=== PATIENT | male | born 1960 | race Hispanic/Latino ===

== ENCOUNTER 2020-05-19 07:28 | Observation (INO) | payer OTHER, MEDICARE ==
[2020-05-14 12:42] LABS: BASOPHILS # (AUTO) 0.1 (0.0-0.1); BASOPHILS % 1.3 % (0.0-1.0); EOSINOPHILS % 14.9 % (0.0-6.0); HEMATOCRIT 44.3 % (38.2-49.6); HEMOGLOBIN 14.6 g/dL (14.0-18.0); MEAN CORPUSCULAR HEMOGLOBIN 29.4 pg (28-32); MEAN CORPUSCULAR VOLUME 89.3 fL (81-99); MONOCYTES # (AUTO) 0.7 (0.2-0.8); MONOCYTES % 9.4 % (4.4-11.3); NEUTROPHILS # (AUTO) 3.2 (2.1-6.9); NEUTROPHILS % 45.1 % (38.7-80.0); PLATELET COUNT 190 x10e3/uL (140-360); RED BLOOD COUNT 4.96 x10e6/uL (4.3-5.7); RED CELL DISTRIBUTION WIDTH 13.6 % (11.7-14.4)
[2020-05-14 12:53] LABS: INR 1.09; PROTHROMBIN TIME 14.7 seconds (11.9-14.5)
[2020-05-14 12:54] LABS: PARTIAL THROMBOPLASTIN TIME 34.5 seconds (23.8-35.5)
[2020-05-14 13:00] LABS: ANION GAP 22.9 mmol/L (8-16); CALCIUM 9.9 mg/dL (8.4-10.2); CREATININE, SERUM 15.01 mg/dL (0.72-1.25); POTASSIUM 3.9 mmol/L (3.5-5.1)
[~2020-05-19] VITALS: Ht 170.2 cm; Wt 76.2 kg
[~2020-05-19 07:28] MED LIST: ACETAMINOPHEN325 M1 PO; CYCLOSPORINE25 MG PO; FLOMAX0.4 MG PO; PRAVACHOL20 MG PO; SODIUM CHLORIDE 0.9% 500ML 500 ML ONE; TRANEXAMIC ACID 1,000 MG/10 ML ML ONE; VANCOMYCIN HCL 1,000 MG ONE; ZOLPIDEM TARTRAT5 MG PO
[2020-05-19] MEDS ORDERED: CELECOXIB 200 MG CAP ONE (07:55)
[2020-05-19] MEDS ORDERED: DEXAMETHASONE SOD PHOS 10 MG/1 ML VIAL ONE (07:55)
[2020-05-19] MEDS ORDERED: SODIUM CHLORIDE 0.9% 500ML 500 ML ONE (07:56)
[2020-05-19] MEDS ORDERED: GABAPENTIN 300 MG CAP ONE (07:56)
[2020-05-19] MEDS ORDERED: CEFAZOLIN SOD 1 GM/NS 50ML 100 ML IV ONE (07:56)
[2020-05-19] MEDS ORDERED: ROPIVACAINE 246.25 MG, EPINEPHRINE HCL 1:1000 1ML 0.5 MG, CLONIDINE HCL 0.08 MG, KETORO... INJ ONE ×5 (08:30)
[2020-05-19] MEDS ORDERED: DOCUSATE SODIUM 100 MG CAP PO PRN (10:45)
[2020-05-19] MEDS ORDERED: DIPHENHYDRAMINE HCL INJ 50 MG/ML VIAL IV PRN (10:45)
[2020-05-19] MEDS ORDERED: ACETAMINOPHEN 650 MG SUPP PR PRN (10:45)
[2020-05-19] MEDS ORDERED: HYDROCODONE/APAP 5MG-325MG TAB PO PRN (10:45)
[2020-05-19] MEDS: SODIUM CHLORIDE 0.9% 1000ML 1,000 ML IV SCH ×2 (10:45→20:45)
[2020-05-19] MEDS ORDERED: ZOLPIDEM TARTRATE 5 MG TAB PO PRN (10:45)
[2020-05-19] MEDS ORDERED: ONDANSETRON HCL INJ 2MG/ML 2ML 2 MG/ML VIAL IV PRN (10:45)
[2020-05-19] MEDS ORDERED: HYDROCODONE/APAP 7.5MG-325MG 1 EA TAB PO PRN (10:45)
[2020-05-19] MEDS ORDERED: KETOROLAC TROMETHAMINE 30 MG/ML VIAL IV PRN (10:45)
--- OUTSIDE RECORDS SUMMARY | 2020-05-19 11:07 | XMS REPORT | Continuity of Care Document ---
Author Author [facility] t Organization [facility] Address [address] [place] [address] Phone Unavailable Care Team Providers Care Motor Inspection Mechanic Name Role Phone AZRA YOST Attphys Unavailable Cm STEEL Attphys Unavailable AZRA YOST Admphys Unavailable Cm STEEL Admphys Unavailable Payers Payer Name Policy Type Policy Number Effective Date Expiration Date S ource Problems Condition Name Condition Details Condition Category Status Onset Date Resolution Date Last Treatment Date Treating Clinician Comments Source End stage renal disease End stage renal disease Disease Active 2018-08-28 00:00:00 [facility] Allergies, Adverse Reactions, Alerts Allergy Name Allergy Type Status Severity Reaction(s) Onset Date Inacti ve Date Treating Clinician Comments Source No Known Allergies DA Active U 2018-07-26 00:00:00 [facility] No Known Contrast Allergies DA Active U 2007-01-06 00:00: 00 [facility] No Known Drug Allergies DA Active U 2007-01-06 00:00:00 [facility] No Known Food Allergies DA Active U 2007-01-06 00:00:00 [facility] No Known Other Allergies DA Active U 2007-01-06 00:00:00 [facility] Social History Social Habit Start Date Stop Date Quantity Comments Source Sex Assigned At [facility] Tobacco use and exposure 2018-09-13 00:00:00 2018-09-13 00:00:00 Lizeth black [facility] Alcohol intake 2018-09-13 00:00:00 2018-09-13 00:00:00 Current non-drinker of alcohol (finding) [facility] Jerrye r Smoking Status Start Date Stop Date Source Never smoker [facility] [place] Medications Ordered Medication Name Filled Medication Name Start Date Stop Da te Current Medication? Ordering Clinician Indication Dosage Frequency Signature (SIG) Comments Components Source pravastatin (PRAVACHOL) 10 MG tablet 2018-09-13 11:36:45 Ye s 10mg QD Take 10 mg by mouth daily. [facility] sodium bicarbonate 650 MG tablet 2018-09-13 11:36:45 Yes 1{tbl} QD Take 1 tablet by mouth daily . [facility] terazosin (HYTRIN) 1 MG capsule 2018-09-13 11:36:45 Yes 1mg Q.5D Take 1 mg by mouth 2 (two) times daily . [facility] mycophenolate (CELLCEPT) 250 mg capsule 2018-09-13 11:36:45 Yes 750mg Q.5D Take 750 mg by mouth 2 (two) times daily . [facility] cycloSPORINE (SANDIMMUNE) 25 MG capsule 2018-09-13 11:36:45 Yes 100mg Q.5D Take 100 mg by mouth 2 (two) times daily . [facility] cholecalciferol, vitamin D3, 2,000 unit Tab 2018-09-13 11:36:45 Yes 2000U QD Take 2,000 Units by mouth daily. [facility] ferrous gluconate (FERGON) 324 MG tablet 2018-09-13 11:36:45 Yes 324mg Take 324 mg by mouth daily with breakfast. [facility] amLODIPine (NORVASC) 5 MG tablet 2018-09-13 11:36:45 Yes 5mg QD Take 5 mg by mouth daily. [facility] furosemide (LASIX) 20 MG tablet 2018-09-13 11:36:45 Yes 20mg QD Take 20 mg by mouth daily . [facility] predniSONE (DELTASONE) 10 MG tablet 2018-09-13 11:36:45 Yes 10mg QD Take 10 mg by mouth daily. [facility] RETACRIT 10,000 unit/mL Soln injection 2018-09-12 00:00:00 Yes [facility] tamsulosin (FLOMAX) 0.4 mg Cap 24 hr capsule 2018-08-25 00:00:00 Yes TK ONE C PO QPM [facility] Procedures This patient has no known procedures. Plan of Care Planned Activity Planned Date Details Comments Source Future Scheduled Test 2020-02-19 00:00:00 INFLUENZA VACCINE (#1) [code = INFLUENZA VACCINE (#1)] [facility] Future Scheduled Test 1993 00:00:00 Lipid panel (proce dure) [code = 89813908] [facility] Future Scheduled Test 1964 00:00:00 PNEUMOCOCCAL VACCI NE 0-64 YRS (1 of 3 - PCV13) [code = PNEUMOCOCCAL VACCINE 0-64 YRS (1 of 3 - PCV13)] [facility] Future Scheduled Test 1958 00:00:00 Screening for damaris gnant neoplasm of colon (procedure) [code = 590885671] [facility] Results Test Description Test Time Test Comments Results Result Comments Source GLUCOSE-STAT LAB 2018-08-28 09:56:00 Test Item GLUCOSE RANDOM (BEAKER) (test code = 652) 99 mg/dL 70-110 POTASSIUM-STAT [id number] 09:56:00* Test Item Value Reference Range Interpretation Comments POTASSIUM (BEAKER) (test code = 379) 3.9 meq/L 3.6-5.5 GLUCOSE-STAT [id number] 07:22:00* Test Item Value Reference Range Interpretation Comments GLUCOSE RANDOM (BEAKER) (test code = 652) 91 mg/dL 70-110 POTASSIUM-STAT [id number] 07:22:00* Test Item Value Reference Range Interpretation Comments POTASSIUM (BEAKER) (test code = 379) 3.7 meq/L 3.6-5.5 HGB/HCT (H&H) - STAT [id number] 07:22:00* Test Item Value Reference Range Interpretation Comments HEMOGLOBIN (BEAKER) (test code = 410) 8.0 g/dL 13.0-16.8 L HEMATOCRIT (BEAKER) (test code = 411) 24.0 % 40.0-50.0 L TISSUE [id number] 12:45:00Surgical Pathology Report Case: [id number] Authorizing Provider: Pati Sepulveda MD Collected: 04/10/2018 8026 Ordering Location: [facility] Radiology Angio Received: 04/10/2018 7231 Pathologist: Tonny Carlos MD Specimen: Renal Pelvis, [place] KIDNEY KIDNEY ALLOGRAFT, ULTRASOUND-GUIDED NEEDLE BIOPSIES (S/P RENAL TRANSPLANT IN 2008)- GLOMERULI WITH MEMBRANOPROLIFERATIVE PATTERN, AND SCATTERED IgA TYPE SUBENDOTHELIAL IMMUNE COMPLEX DEPOSITS, see comment- C4D FOCALLY POSITIVE IN PERITUBULAR CAPILLARIES AND DIFFUSELY POSITIVE IN PERIPHERAL GLOMERULAR CAPILLARY LOOPS- DIFFUSE INTERSTITIAL FIBROSIS AND TUBULAR ATROPHY (~60%) - MODERATE TO SEVERE ARTERIAL AND ARTERIOLAR SCLEROSIS- MULTILAYERING OF PERITUBULAR CAPILLARIES (ULTRASTRUCTURAL) Signing Pathologist Direct Phone Line: [phone] 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 Received in formalin are two okeefe-red c ore biopsies ranging in length from 1 to 1.5 cm, submitted entirely A1. Received fresh is a 1 cm red core biopsy submitted for frozen section for immunofluoresc ence staining and received in glutaraldehyde is a 0.3 cm okeefe-red core submitted for electron microscopy if needed. CG/pl LIGHT MICROSCOPY: Sections show two cor es of renal cortical tissue. Glomeruli: Approximately 13 glomeruli are examine d of which 7 glomeruli are globally sclerotic. The non-sclerotic glomeruli are e nlarged and show diffuse and global double contours of the glomerular basement m embrane (PAS and Ybarra stain) and mild mesangial expansion. Focal and segmental sclerosis is present. Glomerulitis is seen. No crescents, or thrombi are seen. T ubules and interstitium: There is diffuse interstitial fibrosis and tubular atro phy involving about 70% of renal cortex. Non-atrophic proximal tubules are focal ly ectatic with loss of brush borders. The areas of interstitial scarring shows mild to moderate chronic lymphoplasmacytic inflammation. No tubulitis is seen. T here is moderate to severe peritubular capillaritis. Vessels: Branches of inte rlobular arteries show moderate to marked intimal sclerosis. There is diffuse ar teriolar hyalinosis. No endothelialitis, arteritis or transmural vasculitis is s een. Special stains: Giovani trichrome, PAS and Ybarra silver stains were necessa ry for evaluation of this biopsy and showed expected staining patterns of healthcare administration intern al control tissue matrix structures. IMMUNOHISTOCHEMISTRYImmunostain for C4d elizabeth ws diffuse segmental to global peripheral and mild mesangial staining. Peritubul ar capillaries are focally positive.IMMUNOFLUORESCENCE Histology: H&E-stained sections show cortex with 17 glomeruli including one globally sclerotic glomerulus. Indirect immunofluorescence C4d focally positive in less than 40% of peritubular capillaries. There is diffuse segmental to global staining of p eripheral glomerular capillaries with C4d Direct immunofluorescence findings: Ig A: glomeruli with diffuse global peripheral and mesangial granular staining 3+Ig G: glomeruli with diffuse segmental to global peripheral and mesangial granular staining 1+ IgM: glomeruli with diffuse global peripheral and mesangial granular staining 2+ to 3+C3: glomeruli with focal and segmental peripheral staining, ar terioles are positive, yin's capsule is positive.C1q: glomeruli with focal we ak nonspecific stainingFibrinogen: focal and segmental peripheral and mesangial staining 1+[place]: glomeruli with diffuse segmental to global peripheral and funes ngial granular staining 1+ Lambda: glomeruli with diffuse segmental to global pe ripheral and mesangial granular staining 2+ to focally 3+ All polyclonal antibod ies used for immunofluorescence staining have been previously tested and shown t o have appropriate reactivities with positive control specimens. ELECTRON MICROS COPY: Thick section histology: Toluidine blue-stained sections reveal one non-ob solescent glomerulus with global double contours. This glomerulus is examined ul trastructurally. Ultrastructure: Examination of the glomerular ultrastructure r eveals that the glomerular basement membrane is globally thickened with double c ontours due to mesangial interpositioning and focal and segmental multilayering. There are few scattered subendothelial and paramesangial electron-dense, immune complex-type deposits. Podocyte foot processes are diffusely effaced. The leslie tubular capillaries show increased lamellations 5-7 and focally more than 7 laye rs in multiple capillary profiles.The following special studies were performed o n this case and the interpretation is incorporated in the diagnostic report abov e:The immunohistochemistry test was developed and its performance characteristic s determined by [facility], Pathology Laboratory. It has not b een cleared or approved by the U.S. Food and Drug Administration. The FDA has de termined that such clearance or approval is not necessary. The test is used for clinical purposes. It should not be regarded as investigational or for research. This laboratory is certified under the Clinical Laboratory Improvement Amendmen ts of 1988 (CLIA-88) as qualified to perform high complexity clinical laboratory testing.U/S, BIOPSY, RENAL (KIDNEY)2018-04-10 14:01:00Reason for Exam:->kidney disease IIIFINAL REPORT Ultrasound guided renal transplant biopsy Modality: Ultrasound Clinical History: Kidney disease Conscious sedation: 1.0 mg Versed and 50 mcg Fentanyl was given intravenously for moderate sedation monitored under my direction. Total time of sedation was 20 minutes. The patient's vital signs were monitored throughout the procedure and recorded in the patient's medical record by the nurse. Local Anesthesia: 10 cc of 1% lidocaine Technique: Informed consent is obtained. The risks of pain, bleeding, infection, injury to kidney/adjacent structures, and adverse medication reactions are discussed with the patient. After informed consent, the patient's right iliac fossa renal transplant is scanned. The lower pole is selected for biopsy. After the skin is prepped and draped in the usual sterile manner, the area is anesthetized with 1% Lidocaine. After a small skin incision is made, an 18 gauge Biopince core biopsy needle is advanced into the renal transplant, under direct sonographic observation. Two passes are made, with two cores obtained. Postprocedure sonographic evaluation of the area reveals no perinephric hematoma. The patient's vital signs remained stable throughout the procedure. No immediate complications are noted. Patient disposition: The patient is sent to the observation area in good condition to be followed to ensure stability of vital signs and for bed rest. Sandbag is placed over the renal transplant. Impression: Successful and uncomplicated ultrasound guided renal transplant biopsy. Signed: Pati Sepulvedaeport Verified Date/Time: 04/10/2018 14:01:02 Reading Location: [facility] [id number] Ultrasound Reading Room -100 2018-04-10 10:48:00* Test Item Value Reference Range Interpretation Comments COL/EPI CLOSURE TIME (BEAKER) (test code = 1801) 152 Seconds 78-19 1 COL/ADP CLOSURE TIME (BEAKER) (test code = 1802) 138 Seconds 43-12 2 H PLATELET COUNT AGG (BEAKER) (test code = 2656) 174 K/CU MM 150-450 Hematocrit <35% or platelet count <150,000/CU MM may contribute to falsely elevated PFA-100.BASIC METABOLIC [id number] 10:02:00* Test Item Value Reference Range Interpretation Comments SODIUM (BEAKER) (test code = 381) 142 meq/L 136-145 POTASSIUM (BEAKER) (test code = 379) 3.9 meq/L 3.5-5.1 CHLORIDE (BEAKER) (test code = 382) 115 meq/L 98-107 H CO2 (BEAKER) (test code = 355) 18 meq/L 22-29 L BLOOD UREA NITROGEN (BEAKER) (test code = 354) 32 mg/dL 7-21 H CREATININE (BEAKER) (test code = 358) 3.72 mg/dL 0.57-1.25 H GLUCOSE RANDOM (BEAKER) (test code = 652) 101 mg/dL 70-105 CALCIUM (BEAKER) (test code = 697) 8.6 mg/dL 8.4-10.2 EGFR (BEAKER) (test code = 1092) 17 mL/min/1.73 sq m ESTIMATED GFR IS NOT ACCURATE CREATININE CLEARANCE IN PREDICTING GLOMERULAR FILTRATION RATE. ESTIMATED GFR IS NOT APPLICABLE FOR DIALYSIS PATIENTS. PT/[id number] 09:51:00* Test Item Value Reference Range Interpretation Comments PROTIME (BEAKER) (test code = 759) 14.8 seconds 11.7-14.7 H INR (BEAKER) (test code = 370) 1.2 <=5.9 PARTIAL THROMBOPLASTIN TIME (BEAKER) (test code = 760) 32.2 seconds 22.5-36.0 RECOMMENDED COUMADIN/WARFARIN INR THERAPY RANGESSTANDARD DOSE: 2.0 - 3.0 Inclu mag: PROPHYLAXIS for venous thrombosis, systemic embolization; TREATMENT for lazaro ous thrombosis and/or pulmonary embolus.HIGH RISK: Target INR is 2.5-3.5 for pat ients with mechanical heart valves.CBC W/PLT COUNT & AUTO [id number] 09:40:00* Test Item Value Reference Range Interpretation Comments WHITE BLOOD CELL COUNT (BEAKER) (test code = 775) 5.5 K/ L 3.5- 10.5 RED BLOOD CELL COUNT (BEAKER) (test code = 761) 3.14 M/ L 4.63-6 .08 L HEMOGLOBIN (BEAKER) (test code = 410) 9.7 GM/DL 13.7-17.5 L HEMATOCRIT (BEAKER) (test code = 411) 29.0 % 40.1-51.0 L MEAN CORPUSCULAR VOLUME (BEAKER) (test code = 753) 92.4 fL 79. 0-92.2 H MEAN CORPUSCULAR HEMOGLOBIN (BEAKER) (test code = 751) 30.9 pg 25.7-32.2 MEAN CORPUSCULAR HEMOGLOBIN CONC (BEAKER) (test code = 752) 33.4 GM/DL 32.3-36.5 RED CELL DISTRIBUTION WIDTH (BEAKER) (test code = 412) 13.7 % 11.6-14.4 PLATELET COUNT (BEAKER) (test code = 756) 176 K/CU MM 150-450 MEAN PLATELET VOLUME (BEAKER) (test code = 754) 11.1 fL 9.4-12 .4 NUCLEATED RED BLOOD CELLS (BEAKER) (test code = 413) 0 /100 WBC 0 -0 NEUTROPHILS RELATIVE PERCENT (BEAKER) (test code = 429) 69 % LYMPHOCYTES RELATIVE PERCENT (BEAKER) (test code = 430) 21 % MONOCYTES RELATIVE PERCENT (BEAKER) (test code = 431) 6 % EOSINOPHILS RELATIVE PERCENT (BEAKER) (test code = 432) 3 % BASOPHILS RELATIVE PERCENT (BEAKER) (test code = 437) 1 % NEUTROPHILS ABSOLUTE COUNT (BEAKER) (test code = 670) 3.80 K/ L 1.78-5.38 LYMPHOCYTES ABSOLUTE COUNT (BEAKER) (test code = 414) 1.14 K/ L 1.32-3.57 L MONOCYTES ABSOLUTE COUNT (BEAKER) (test code = 415) 0.31 K/ L 0. 30-0.82 EOSINOPHILS ABSOLUTE COUNT (BEAKER) (test code = 416) 0.18 K/ L 0.04-0.54 BASOPHILS ABSOLUTE COUNT (BEAKER) (test code = 417) 0.03 K/ L 0. 01-0.08 IMMATURE GRANULOCYTES-RELATIVE PERCENT (BEAKER) (test code = 2801) 0 % 0-1
--- OUTSIDE RECORDS SUMMARY | 2020-05-19 11:07 | XMS REPORT | Clinical Summary ---
Author Author [facility] Address Unknown Phone Unavailable Care Team Providers Care Server Name Role Phone PCP Unavailable Allergies No Known Allergies Medications End Date Status Medication Sig Dispensed Refills Start Date Active pravastatin (PRAVACHOL) Take 10 mg by 0 10 MG tablet mouth daily. Active sodium bicarbonate 650 MG Take 1 tablet 0 tablet by mouth daily . Active terazosin (HYTRIN) 1 MG Take 1 mg by 0 capsule mouth 2 (two) times daily . Active mycophenolate (CELLCEPT) Take 750 mg 0 250 mg capsule by mouth 2 (two) times daily . Active cycloSPORINE (SANDIMMUNE) Take 100 mg 0 25 MG capsule by mouth 2 (two) times daily . Active cholecalciferol, vitamin Take 2,000 0 D3, 2,000 unit Tab Units by mouth daily. Active ferrous gluconate Take 324 mg 0 (FERGON) 324 MG tablet by mouth daily with breakfast. Active amLODIPine (NORVASC) 5 MG Take 5 mg by 0 tablet mouth daily. Active furosemide (LASIX) 20 MG Take 20 mg by 0 tablet mouth daily . Active predniSONE (DELTASONE) 10 Take 10 mg by 0 MG tablet mouth daily. Active tamsulosin (FLOMAX) 0.4 TK ONE C PO 3 mg Cap 24 hr capsule QPM 9 Active RETACRIT 10,000 unit/mL 0 Soln injection 9 Active Problems Problem Noted Date End stage renal disease 08/28/2018 Social History Date Tobacco Use Types Packs/Day Years Used Never Smoker Smokeless Tobacco: Never Used Drinks/Week oz/Week Comments Alcohol Use No Sex Assigned at Date Recorded Not on file Last Filed Vital Signs Not on file Plan of Treatment Health Maintenance Due Date Last Done Comments COLON CANCER SCREENING 1958 COLONOSCOPY PNEUMOCOCCAL VACCINE 0-64 1964 YRS (1 of 3 - PCV13) LIPID PANEL 1993 INFLUENZA VACCINE (#1) 2020 Results Not on fileafter 05/19/2019 Insurance Type Payer Benefit Subscriber ID Effective Phone Address Plan / Dates Group HMO/POS AETNA - [employer] C[employer] AETNA HMO [id number] 2015-P POS QPOS resent Advance Directives For more information, please contact: [phone] Date Inactivated Comments Code Status Date Activated 08/28/2018 2:13 PM Full Code 08/28/2018 6:49 AM This code status was determined by: Patient 04/10/2018 10:01 PM Full Code 04/10/2018 4:16 PM This code status was determined by: Patient
[2020-05-19] MEDS ORDERED: MEPERIDINE HCL INJ 25 MG/ML VIAL ONE (11:18)
--- NOTE | 2020-05-19 11:29 | Operative Report ---
DATE OF PROCEDURE: 05/19/2020 SURGEON: Wilman Tipton MD CONNIE CLEANER: Priyank Brown PA-C PREOPERATIVE DIAGNOSIS: Osteoarthritis, right knee. POSTOPERATIVE DIAGNOSIS: Osteoarthritis, right knee. PROCEDURE: Right total knee arthroplasty. INDICATIONS: The patient is a 59-year-old gentleman, who has end-stage arthritis in his right knee. He has failed conservative management and would like to proceed with a right total knee replacement. His past medical history is significant for kidney transplant. The risks and benefits have been thoroughly explained. All of his questions have been answered. He states he understands and wishes to proceed. PROCEDURE IN DETAIL: The patient was brought to the operating room and placed under general anesthetic. His right lower extremity was prepped and draped in a sterile manner. He received prophylactic antibiotics, tranexamic acid, and a regional block in the holding area. A preoperative time-out was performed. The extremity was exsanguinated and a proximal tourniquet was inflated to 300 mmHg. An anterior incision with a medial parapatellar arthrotomy was performed. Extensive inflamed synovium was encountered. A subtotal synovectomy was performed. Soft tissue releases were performed to bring the knee up into flexion with the patella everted. Meniscal remnants and marginal osteophytes in the cruciate ligaments were removed. A Maya/Biomet persona medial congruent knee system was used throughout the case. An extramedullary cutting guide was used to resect the proximal tibia. The tibial base plate was a size E. Central fin punch was then drilled and impacted. Attention was directed towards the distal femur. An intramedullary cutting guide was used to resect the distal femur in 5 degrees of valgus and rotation referencing off a combination of landmarks including Whitesides line, the epicondylar axis, and the posterior condyles. The femoral component was a size 7. The anterior and posterior cuts were made. Trial reductions were performed. A 10 mm medial congruent tibial insert provided appropriate soft tissue balancing in full extension and 90 degrees of flexion. The patella was re-resurfaced with a 32 mm patellar button. The thickness was checked before and after resurfacing and was right at 21 mm. Patellar tracking was noted to be concentric. The trial implants were then all removed. The knee was thoroughly irrigated with a shower tip pulsatile lavage. The knee had been irrigated several times with a spray mixture of diluted polymyxin and vancomycin spray throughout the case. A 100 mL premixed pericapsular ENEIDA injection was then injected into the surrounding soft tissue. The components were cemented into place using a single mix of high viscosity Biomet cement preloaded with antibiotics. Care was taken to remove all extravasated cement. The wound was further irrigated while the cement cured. The arthrotomy was then closed with interrupted #1 Ethibond. The knee was put through flexion and extension to ensure a secure closure. A 500 mg of vancomycin powder was sprinkled into the wound prior to the closure. The skin was then closed with subcuticular Vicryl and asya. A sterile Aquacel bandage and an Geovani wrap were applied. Blood loss was minimal. All needle and sponge counts were correct. Wilman Tipton MD DR/TIFFANY /[id number]
[2020-05-19] MEDS ORDERED: DEXAMETHASONE SOD PHOS INJ 4 MG/ML VIAL ONE (11:31)
[2020-05-19] MEDS ORDERED: PROPOFOL IV EMULSION 10 MG/ML 20 ML VIAL ONE (11:31)
[2020-05-19] MEDS ORDERED: LIDOCAINE HCL 2% LOCAL INJ 5 ML SDV VIAL INJ ONE (11:31)
[2020-05-19] MEDS ORDERED: MIDAZOLAM HCL 2 MG/2 ML VIAL ONE (11:31)
[2020-05-19] MEDS ORDERED: FENTANYL CITRATE/PF 100MCG/2 ML INJ ONE ×2 (11:31→11:41)
[2020-05-19] MEDS ORDERED: ROCURONIUM BROMIDE 10 MG/ML 5ML VIAL IV ONE (11:31)
[2020-05-19] MEDS ORDERED: ONDANSETRON HCL INJ 2MG/ML 2ML 2 MG/ML VIAL ONE (11:31)
[2020-05-19] MEDS ORDERED: NEOSTIGMINE 1 MG/ML 10ML VIAL ONE (11:31)
[2020-05-19] MEDS ORDERED: GLYCOPYRROLATE INJ 0.2 MG/ML VIAL ONE (11:31)
[2020-05-19] MEDS ORDERED: SEVOFLURANE INHAL SOLN 250 ML PEN BTL ONE (11:31)
--- NOTE | 2020-05-19 11:54 | Diagnostic Imaging Report ---
Exam: KNEE RIGHT 1-2 VIEWS History: Postop Comparison: None. Findings: Status post right knee total arthroplasty with appropriate alignment of femoral and tibial prostheses. No evidence of acute hardware failure. Associated postsurgical changes including joint effusion with intra-articular air. No fracture or acute osseous abnormality. No joint malalignment or dislocation. Anterior superficial skin asya. Scattered vascular calcifications. Impression: 1. Status post right knee total arthroplasty without evidence of acute hardware complication. Associated postsurgical changes in the surrounding soft tissues. Signed by: Dr. Thom Galarza M.D. on 05/19/2020 11:51 AM
--- NOTE | 2020-05-19 11:54 | Consultation ---
DATE OF CONSULTATION: 05/19/2020 REASON FOR CONSULTATION: Medical management. HISTORY OF PRESENT ILLNESS: This is a 59-year-old man, who was initially admitted to [facility] with diagnosis of advanced right knee osteoarthritis. Today, the patient underwent right total knee arthroplasty, was performed successfully by his orthopedic surgeon, namely Dr. Wilman Tipton. This gentleman has history of end-stage renal disease and undergoes daily peritoneal dialysis. The patient has voiced no complaints at this time. The patient underwent a Coronavirus test by PCR on May 14, 2020, and the results were negative. On May 14, 2020, the patient's BUN and creatinine were 49 and 15.01 respectively. The patient's potassium is 3.9. The patient's hemoglobin on May 14, 2020, was 14.6 g/dL. REVIEW OF SYSTEMS: GENERAL: Weight has been stable. No fever or chills. HEENT: No headaches. No visual changes. CARDIOVASCULAR/RESPIRATORY: No chest pain. No shortness of breath. No cough. GI: No nausea or vomiting. : No Schwartz catheter in place, but the patient does have BPH symptoms, well controlled with tamsulosin. The patient is anuric (transplanted kidney no longer functions). NEUROMUSCULAR: The patient has arthritic pain in his knees. ALLERGIES: NO KNOWN DRUG ALLERGIES. MEDICATIONS: 1. Acetaminophen 650 mg every night as needed for arthritic pain. 2. Cyclosporine 50 mg at bedtime. 3. Pravastatin 10 mg at bedtime. 4. Tamsulosin 0.4 at bedtime. 5. Zolpidem 10 mg at bedtime for insomnia. FAMILY HISTORY: Noncontributory. PAST MEDICAL HISTORY: 1. End-stage renal disease (daily peritoneal dialysis). 2. History of kidney transplantation in 2008. 3. Hyperlipidemia. 4. Benign prostatic hypertrophy. 5. Chronic diastolic congestive heart failure. 6. Ischemic heart disease. PAST SURGICAL HISTORY: 1. Kidney transplantation in 2008. 2. Cholecystectomy. 3. Cataract surgery. 4. Right knee total arthroplasty today. 5. Dialysis shunt insertion in October of 2018. SOCIAL HISTORY: The patient is , lives with . No history of tobacco or alcohol use. He is currently not employed. PHYSICAL EXAMINATION: GENERAL: On exam, he is somnolent, but he is arousable. He does not appear to be in any obvious distress. VITAL SIGNS: Blood pressure is 95/58, pulse 86, respiratory rate 16, oxygen saturation is 100% on a Venti mask at 10 L a minute, pulse 85, temperature 98.0, height 5 feet 7 inches, weight 168 pounds, BMI 26. INTEGUMENT: Skin is warm and dry. No pallor, jaundice, or diaphoresis. HEENT: Anterior sclerae. Moist mucous membranes. NECK: Supple. No evidence of jugular venous distention. CARDIOVASCULAR: Distant heart sounds. Regular rate and rhythm. LUNGS: No rales. No rhonchi. ABDOMEN: Soft. Normal bowel sounds. EXTREMITIES: Right knee is dressed. NEUROLOGIC: Intact. The patient moves all four extremities freely. DIAGNOSES: 1. Status post right total knee arthroplasty.. 2. End-stage renal disease (on daily peritoneal dialysis). 3. Hyperlipidemia. PLAN: 1. Consult Nephrology since the patient undergoes daily peritoneal dialysis. 2. Mobilize the patient with therapy. 3. Encouraged incentive spirometer usage to prevent atelectasis. 4. Pain control. 5. Follow electrolytes since this patient does have end-stage renal disease. I would like to thank, Dr. Wilman Tipton for this generous consult. I spent 45 minutes in the care of this patient. MD JAZMYN Mcgee/TIFFANY /[id number] MTDGeraldo
[2020-05-19 13:02] LABS: BASOPHILS % 0.3 % (0.0-1.0); EOSINOPHILS % 0.5 % (0.0-6.0); HEMATOCRIT 37.8 % (38.2-49.6); HEMOGLOBIN 12.4 g/dL (14.0-18.0); LYMPHOCYTES # (AUTO) 0.4 (1.0-3.2); LYMPHOCYTES % 5.7 % (18.0-39.1); MEAN CORPUSCULAR HGB CONC 32.8 g/dL (31-35); MEAN CORPUSCULAR VOLUME 88.3 fL (81-99); MONOCYTES # (AUTO) 0.1 (0.2-0.8); MONOCYTES % 0.6 % (4.4-11.3); NEUTROPHILS # (AUTO) 7.1 (2.1-6.9); NEUTROPHILS % 92.6 % (38.7-80.0); PLATELET COUNT 148 x10e3/uL (140-360); RED BLOOD COUNT 4.28 x10e6/uL (4.3-5.7); RED CELL DISTRIBUTION WIDTH 13.9 % (11.7-14.4)
--- NOTE | 2020-05-19 14:05 | NUR ---
received patient from PACU via stretcher, pt is alert no s/s of distress. respirations even and nonlabored. pt transferred to hospital bed with no assistance. bilateral foot pumps placed. family at the bedside
[2020-05-19] MEDS ORDERED: SODIUM CHLORIDE 0.9% 250ML 250 ML ONE (14:21)
[2020-05-19] MEDS: CEFAZOLIN SOD 1 GM/NS 50ML 50 ML IV SCH ×2 (14:37→21:36)
[2020-05-19 16:22] VITALS: BP 125/84
[2020-05-19] MEDS: CELECOXIB 200 MG CAP PO SCH (16:43)
[2020-05-19] MEDS: ASPIRIN 325 MG TAB PO SCH (16:43)
[2020-05-19] MEDS: SEVELAMER CARBONATE 800 MG TAB PO SCH (16:44)
--- NOTE | 2020-05-19 17:42 | Consultation ---
DATE OF CONSULTATION: 05/19/2020 REQUESTING PHYSICIAN: Dr. Falk REASON FOR CONSULTATION: ESRD. Thank you for allowing us to participate in Mr. Kent's care. HISTORY OF PRESENT ILLNESS: This is a 59-year-old male with history of end-stage renal disease. He has failed living unrelated transplant that lasted about 10 years. He came for osteoarthritis of the right knee requiring arthroplasty. That was done by Dr. Rey. His phosphorus tends to run high. PAST HISTORY: 1. End-stage renal disease. 2. Failed living unrelated renal transplant. 3. Still on some immunosuppression that needs to be weaned. 4. Ongoing peritoneal dialysis. 5. Secondary hyperparathyroidism with hyperphosphatemia that has been uncontrolled. MEDICATIONS: Please see list. SOCIAL HISTORY: Lives with family. FAMILY HISTORY: Hypertension. REVIEW OF SYSTEMS: CONSTITUTIONAL: No fever or chills. CARDIAC: No angina or syncope. RESPIRATORY: No cough or hemoptysis. : Makes very little urine. MUSCULOSKELETAL: Knee pain is now operated on. Rest of review is negative. PHYSICAL EXAMINATION: GENERAL: Lying in bed, no distress. VITAL SIGNS: Temperature is 98, pulse 72 regular, blood pressure 95/67. HEENT: Atraumatic. CHEST: Clear. Bilateral breath sounds equal. ABDOMEN: Soft. PD catheter in place. EXTREMITIES: Right leg is wrapped. Left leg no edema. NEUROLOGIC: Alert and appropriate. Speech is normal. LABORATORY DATA: K is 3.9, creatinine 15, BUN 49. Hemoglobin is 12.4. ASSESSMENT: 1. End-stage renal disease. 2. Ongoing peritoneal dialysis with trouble with clearances, requiring long stays on the cycler machine. 3. Anemia with satisfactory hemoglobin. 4. History of failed transplant. 5. Volume status seems reasonable. 6. Electrolytes satisfactory. PLAN: 1. Peritoneal dialysis tonight. We will try to see if he will tolerate 3 L exchanges. Tonight, we will try 5 exchanges. 2. 3 L fill volume. 3. 90 minute dwell. 4. 1.25% dextrose/2.5% dextrose in the dialysate fluid. Keep salt and water restricted. 5. He normally uses a medicine called Velphoro for his phosphorus. We will change it to a more easily available sevelamer while he is here. Once he goes home, he can resume it. 6. Also discussed with the regarding diet given his propensity towards musculoskeletal problems. It is important to control the phosphorus based on what we know. Avoid common high phosphorus foods such as corn and beans which he seems to be quite fond of. MD MARIE Pagan/TIFFANY /[id number]
[2020-05-19] MEDS ORDERED: ROPIVACAINE 0.5% 5 MG/ML 30 ML SDV ONE (18:01)
[2020-05-19] MEDS ORDERED: LIDOCAINE 2%/ EPINEPHRINE 20ML MDV ONE (18:01)
--- NOTE | 2020-05-19 19:12 | NUR ---
WALKING ROUNDS PERFORMED, RECEIVED PT LAYING SEMI FOWLERS IN BED, AAOX3, RR EVEN AND NON-LABORED, ON ROOM AIR. NO S/SX OF DISTRESS NOTED. (R) KNEE IN CPM AT 50 FLEXION, INCREASED SPEED TO 3 AND INCREASED FLEXION TO 60. PT TOLERATING WELL. LEFT PT LAYING SEMI FOWLERS IN BED, BED IN LOW LOCKED POSITION, SIDE RAILS UPX2, CALL LIGHT AND PHONE WITHIN REACH.
[2020-05-19 20:00] VITALS: BP 122/89
[2020-05-19] MEDS ORDERED: TAMSULOSIN HCL 0.4 MG CAP PO SCH (21:00)
[2020-05-19] MEDS ORDERED: CYCLOSPORINE 25 MG CAP PO SCH (21:00)
[2020-05-19] MEDS ORDERED: ZOLPIDEM TARTRATE 10 MG TAB PO SCH (21:00)
[2020-05-19] MEDS ORDERED: ZOLPIDEM TARTRATE 5 MG TAB PO SCH (21:00)
[2020-05-19] MEDS ORDERED: PRAVASTATIN 20 MG TAB PO SCH (21:00)
[2020-05-19] MEDS ORDERED: ACETAMINOPHEN 325 MG TAB PO SCH (21:00)
[2020-05-19 22:05] VITALS: BP 122/89
[2020-05-19] MEDS ORDERED: INFLUENZA VIRUS VAC SPLIT INJ 0.5 ML SYR IM SCH (22:22)
[2020-05-20] VITALS: BP 136/99
[2020-05-20 04:00] VITALS: BP 116/84
[2020-05-20 05:01] LABS: BASOPHILS % 0.2 % (0.0-1.0); HEMATOCRIT 37.3 % (38.2-49.6); HEMOGLOBIN 12.3 g/dL (14.0-18.0); LYMPHOCYTES % 10.2 % (18.0-39.1); MONOCYTES # (AUTO) 0.5 (0.2-0.8); MONOCYTES % 5.3 % (4.4-11.3); NEUTROPHILS # (AUTO) 8.2 (2.1-6.9); NEUTROPHILS % 83.9 % (38.7-80.0); PLATELET COUNT 159 x10e3/uL (140-360); RED BLOOD COUNT 4.24 x10e6/uL (4.3-5.7); RED CELL DISTRIBUTION WIDTH 13.7 % (11.7-14.4)
[2020-05-20 05:32] LABS: ALBUMIN/GLOBULIN RATIO 0.7 (0.8-2.0); ANION GAP 24.8 mmol/L (8-16); CALCIUM 9.4 mg/dL (8.4-10.2); CREATININE, SERUM 15.79 mg/dL (0.72-1.25); POTASSIUM 3.8 mmol/L (3.5-5.1)
[2020-05-20] MEDS: CEFAZOLIN SOD 1 GM/NS 50ML 50 ML IV SCH (05:43)
[2020-05-20] MEDS: SODIUM CHLORIDE 0.9% 1000ML 1,000 ML IV SCH (06:03)
--- NOTE | 2020-05-20 07:44 | Progress Note ---
DATE: 05/20/2020 CHIEF COMPLAINT/HISTORY OF PRESENT ILLNESS: This is a 59-year-old man, who was initially admitted to [facility] with a diagnosis of advanced right knee osteoarthritis. Yesterday, the patient underwent successful right total knee arthroplasty that was performed by Dr. Wilman Tipton. The patient states that his pain is well controlled. The patient voices no other complaints. The patient has end-stage renal disease and undergoes daily peritoneal dialysis. The patient did undergo peritoneal dialysis last night and will undergo peritoneal dialysis later today. The patient was seen by his automation operator during this hospitalization namely, Dr. Jones. Blood work today revealed white blood cell count of 9700 with 83% segmented neutrophils. Hemoglobin is 12.3 g/dL. The patient's BUN and creatinine today is 64 and 15.79 respectively. Potassium is 3.8. Serum bicarbonate is 21. REVIEW OF SYSTEMS: As per HPI. PHYSICAL EXAMINATION: GENERAL: He is awake. He is alert. He is oriented. He is in no distress. VITAL SIGNS: Height is 5 feet 7 inches, weight is 168 pounds, BMI 26, blood pressure is 116/84, pulse 56, respiratory rate 18, temperature 97.6, oxygen saturation 100% on room air. INTEGUMENT: Skin is warm and dry. No pallor, jaundice, or diaphoresis. HEENT: Anterior sclerae. Moist mucous membranes. NECK: Supple. CARDIOVASCULAR: Bradycardic rate, regular rhythm. The patient has a faint systolic ejection murmur. No gallops appreciated. LUNGS: No rales. No rhonchi. No wheezes. ABDOMEN: Soft. EXTREMITIES: The right knee joint is currently dressed. NEUROLOGIC: Intact. DIAGNOSES: 1. Status post right total knee arthroplasty. 2. End-stage renal disease. 3. Chronic diastolic congestive heart failure. PLAN: 1. Proceed with peritoneal dialysis today. 2. Mobilize the patient with therapy. 3. Encourage incentive spirometer use to prevent atelectasis. 4. Pain control. 5. Follow electrolytes. 6. Discharge planning for today. I spent 20 minutes in care of this patient. MD JAZMYN Mcgee/TIFFANY /[id number] EMELY
[2020-05-20 07:45] VITALS: BP 118/84
[2020-05-20] MEDS: ASPIRIN 325 MG TAB PO SCH (08:34)
[2020-05-20] MEDS: CELECOXIB 200 MG CAP PO SCH (08:34)
[2020-05-20] MEDS: SEVELAMER CARBONATE 800 MG TAB PO SCH ×2 (08:34→11:50)
--- NOTE | 2020-05-20 08:44 | Progress Note ---
DATE: SUBJECTIVE: Tolerated peritoneal dialysis overnight. 3 L fill volume was used in an attempt to make clearance is better, so he may be able to shorten dialysis time. Pending final UF calculation. PHYSICAL EXAMINATION: VITAL SIGNS: Temperature 97.8, blood pressure 118/84, pulse 58. CHEST: Clear. EXTREMITIES: No edema. Right leg is wrapped. LABORATORY DATA: Hemoglobin is 12.3, potassium 3.8, and serum CO2 21. ASSESSMENT: End-stage renal disease. Volume reasonable. Blood pressure reasonable. Status post arthroplasty of the right knee. PLAN: Continue to yesterday's PD prescription if he was here. If not, he may go back to his home dialysis prescription and readjust as we go along. I will pass on the message that he is tolerating slightly larger fill volumes, which hopefully may allow the total dialysis time to be shorten in (this has become a source of frustration and hence a risk for him stopping home dialysis). MD MARIE Pagan/TIFFANY /[id number]
[2020-05-20 10:33] VITALS: BP 118/84
[2020-05-20] MEDS ORDERED: ACETAMINOPHEN 1000 MG/100 ML IV PRN (10:45)
[2020-05-20 11:41] VITALS: BP 105/78
--- NOTE | 2020-05-20 12:29 | NUR ---
Home health and DME prearranged by Dr. Tipton's office. Home health set up with [facility]. CM called and spoke with Jessy. States pt is scheduled to be seen tomorrow. Home health information was given to pt. CM asked him to call them if he does not hear from them within 24 hrs of discharge. RW and CPM were delivered by [facility] to pt's bedside today. Pt states he already has a BSC.
--- NOTE | 2020-05-20 13:00 | NUR ---
paged Dr. Falk to inform him that Dr. Tipton put in discharge orders
[2020-05-20] MEDS ORDERED: ONDANSETRON HCL 4 MG ORAL DISINTEGRATING TAB PO PRN (13:15)
== END 2020-05-20 15:10 | disposition home or self-care (01) ==
LOC: OR 07:28 → PACU V 10:41 → MED/SURG 13:58
PROVIDERS: ADMIT Specialist; ATTEND Specialist
DX: M17.0 Bilateral primary osteoarthritis of knee (principal); N18.6 End stage renal disease; Z99.2 Dependence on renal dialysis; I13.2 Hypertensive heart and chronic kidney disease with heart failure and with stage 5 chronic kidney disease, or end stage renal disease; I50.32 Chronic diastolic (congestive) heart failure; Z94.0 Kidney transplant status; N40.0 Benign prostatic hyperplasia without lower urinary tract symptoms; I25.9 Chronic ischemic heart disease, unspecified; Z20.828 Contact with and (suspected) exposure to other viral communicable diseases; Z23 Encounter for immunization
CPT/HCPCS: 27447; 36415 ×3; 64450; 73560; 80048; 80053; 84132; 85025 ×3; 85610; 85730; 86850; 86900; 86920; 90970; 97110; 97116 ×2; 97161; C1713; C1776 ×4; G0378 ×2; J0171; J0690 ×2; J1100 ×2; J1885; J2001 ×2; J2175; J2250; J2405; J2704; J2710; J2795; J3010; J3370; J7040; J7050; J7515; U0002

== ENCOUNTER → 2020-12-25 | Day surgery (SDC) | payer MEDICARE, OTHER ==
[~2020-12-25] MED LIST changes: +LIDOCAINE HCL 2% LOCAL INJ 5 ML SDV VIAL INJ ONE; +MIDAZOLAM HCL 2 MG/2 ML VIAL ONE; +PHENYLEPHRINE HCL 1% 10 MG/ML VIAL ONE; +PROPOFOL IV EMULSION 10 MG/ML 20 ML VIAL ONE; +SENSIPAR30 MG PO; +TEMAZEPAM15 MG PO; -TRANEXAMIC ACID 1,000 MG/10 ML ML ONE; -VANCOMYCIN HCL 1,000 MG ONE; +VITAMIN D3250 MCG PO
[2020-12-25 07:08] LABS: BASOPHILS # (AUTO) 0.1 (0.0-0.1); BASOPHILS % 1.4 % (0.0-1.0); EOSINOPHILS # (AUTO) 2.4 (0.0-0.4); EOSINOPHILS % 26.1 % (0.0-6.0); HEMATOCRIT 27.3 % (38.2-49.6); HEMOGLOBIN 9.1 g/dL (14.0-18.0); LYMPHOCYTES # (AUTO) 1.8 (1.0-3.2); LYMPHOCYTES % 19.3 % (18.0-39.1); MEAN CORPUSCULAR HEMOGLOBIN 30.7 pg (28-32); MEAN CORPUSCULAR HGB CONC 33.3 g/dL (31-35); MEAN CORPUSCULAR VOLUME 92.2 fL (81-99); MONOCYTES # (AUTO) 0.7 (0.2-0.8); MONOCYTES % 7.6 % (4.4-11.3); NEUTROPHILS # (AUTO) 4.2 (2.1-6.9); NEUTROPHILS % 45.3 % (38.7-80.0); PLATELET COUNT 276 x10e3/uL (140-360); RED BLOOD COUNT 2.96 x10e6/uL (4.3-5.7); RED CELL DISTRIBUTION WIDTH 14.5 % (11.7-14.4)
[2020-12-25 07:30] LABS: INR 1.07; PROTHROMBIN TIME 14.5 seconds (11.9-14.5)
[2020-12-25 07:31] LABS: PARTIAL THROMBOPLASTIN TIME 37.2 seconds (23.8-35.5)
[2020-12-25 08:12] LABS: EOSINOPHILS % (MANUAL) 28 % (0-7); LYMPHOCYTES % (MANUAL) 20 % (19-48); MONOCYTES % (MANUAL) 4 % (3.4-9.0); NEUTROPHILS % (MANUAL) 48 % (40-74); PLATELET ESTIMATE ADEQUATE; PLATELET MORPHOLOGY COMMENT NORMAL; RBC MORPHOLOGY COMMENT NORMAL
[2020-12-25 09:00] VITALS: BP 106/72
== END | disposition home or self-care (01) ==
LOC: OR 06:07
PROVIDERS: ATTEND Internal Medicine Gastroenterology
DX: Z12.11 Encounter for screening for malignant neoplasm of colon (principal); K64.8 Other hemorrhoids; D64.9 Anemia, unspecified; I12.0 Hypertensive chronic kidney disease with stage 5 chronic kidney disease or end stage renal disease; N18.6 End stage renal disease; N40.0 Benign prostatic hyperplasia without lower urinary tract symptoms; Z01.810 Encounter for preprocedural cardiovascular examination; Z99.2 Dependence on renal dialysis; Z94.0 Kidney transplant status
CPT/HCPCS: 36415; 84132; 85025; 85610; 85730; 93005; G0121; J2001; J2250; J2370; J2704; J7040; 45378

== ENCOUNTER 2021-02-22 15:18 | Inpatient (IN) | payer MEDICARE, OTHER ==
[~2021-02-22] VITALS: Ht 170.2 cm; Wt 76.2 kg
[~2021-02-22 15:18] MED LIST changes: -LIDOCAINE HCL 2% LOCAL INJ 5 ML SDV VIAL INJ ONE; -MIDAZOLAM HCL 2 MG/2 ML VIAL ONE; -PHENYLEPHRINE HCL 1% 10 MG/ML VIAL ONE; -PROPOFOL IV EMULSION 10 MG/ML 20 ML VIAL ONE; -SODIUM CHLORIDE 0.9% 500ML 500 ML ONE
[2021-02-22] MEDS ORDERED: NEOSTIGMINE 1 MG/ML 10ML VIAL ONE (15:51)
[2021-02-22] MEDS ORDERED: PROPOFOL IV EMULSION 10 MG/ML 20 ML VIAL ONE (15:51)
[2021-02-22] MEDS ORDERED: POVIDONE IODINE 0.05% 0.05 % ML PO ONE (15:51)
[2021-02-22] MEDS ORDERED: IOPAMIDOL 370 MG/ML 200 ML INFUS..BTL INJ ONE (16:08)
[2021-02-22] MEDS ORDERED: SODIUM CHLORIDE 0.9% 50ML 50 ML ONE (16:08)
[2021-02-22 16:36] LABS: BASOPHILS % 0.5 % (0.0-1.0); HEMATOCRIT 39.6 % (38.2-49.6); LYMPHOCYTES # (AUTO) 0.2 (1.0-3.2); LYMPHOCYTES % 11.1 % (18.0-39.1); MEAN CORPUSCULAR HEMOGLOBIN 28.4 pg (28-32); MEAN CORPUSCULAR HGB CONC 32.8 g/dL (31-35); MEAN CORPUSCULAR VOLUME 86.5 fL (81-99); MONOCYTES # (AUTO) 0.2 (0.2-0.8); NEUTROPHILS # (AUTO) 1.6 (2.1-6.9); NEUTROPHILS % 78.9 % (38.7-80.0); PLATELET COUNT 159 x10e3/uL (140-360); RED BLOOD COUNT 4.58 x10e6/uL (4.3-5.7); RED CELL DISTRIBUTION WIDTH 14.2 % (11.7-14.4)
[2021-02-22 16:46] LABS: INR 1.26; PROTHROMBIN TIME 16.1 seconds (11.9-14.5)
[2021-02-22 16:47] LABS: PARTIAL THROMBOPLASTIN TIME 38.7 seconds (23.8-35.5)
[2021-02-22 16:57] LABS: ALBUMIN 2.5 g/dL (3.5-5.0); ALBUMIN/GLOBULIN RATIO 0.4 (0.8-2.0); ANION GAP 22.4 mmol/L (8-16); CALCIUM 9.2 mg/dL (8.4-10.2); CREATININE, SERUM 12.85 mg/dL (0.72-1.25)
[2021-02-22 16:58] LABS: POTASSIUM 2.4 mmol/L (3.5-5.1)
[2021-02-22] MEDS ORDERED: DILTIAZEM HCL 5 MG/ML 5 ML VIAL IV STA (16:58)
[2021-02-22] MEDS ORDERED: SODIUM CHLORIDE 0.9% 250ML 250 ML IV ONE (17:00)
[2021-02-22 17:03] LABS: CREATINE KINASE MB 0.2 ng/mL (0-5.0)
[2021-02-22] MEDS ORDERED: POTASSIUM CHLORIDE 20 MEQ TAB CR PO STA (17:13)
[2021-02-22] MEDS ORDERED: Vancomycin IV 1 GM in SODIUM CHLORIDE 0.9% 250ML 250 ML IV ONE (17:15)
[2021-02-22] MEDS ORDERED: CEFEPIME 1 GM in SODIUM CHLORIDE 0.9% 50ML 50 ML IV ONE (17:15)
[2021-02-22] MEDS ORDERED: SODIUM CHLORIDE 0.9% 500ML 500 ML ONE (18:38)
[2021-02-22] MEDS ORDERED: SODIUM CHLORIDE 3% 500 ML IV ONE (18:45)
[2021-02-22] MEDS ORDERED: SODIUM CHLORIDE 0.9% 1000ML 500 ML IV SCH (18:45)
[2021-02-22 18:54] LABS: BODY FLUID APPEARANCE TURBID; BODY FLUID TYPE PERITONEAL
[2021-02-22 18:56] LABS: RBC,BODY FLUID 9000 cells/uL; WBC,BODY FLUID 194975 cells/uL
[2021-02-22] MEDS ORDERED: ONDANSETRON HCL INJ 2MG/ML 2ML 2 MG/ML VIAL IV PRN (19:00)
[2021-02-22] MEDS ORDERED: SODIUM CHLORIDE 0.9% 1000ML 1,000 ML IV ONE (19:00)
[2021-02-22] MEDS ORDERED: ALBUMIN 25% 25GM 100ML 0.25 GM/ML BTL IV ONE (19:00)
[2021-02-22] MEDS: SODIUM CHLORIDE 0.9% 500ML 500 ML IV ONE ×2 (19:05→21:30)
[2021-02-22 20:40] LABS: LYMPHOCYTES,BODY FLUID 1 %; MONO/MACROPHG,BODY FLUID 5 %; NEUTROPHILS,BODY FLUID 94 %
[2021-02-22 21:05] VITALS: BP 115/86
[2021-02-22 21:30] VITALS: BP 115/86
[2021-02-22] MEDS ORDERED: ALBUMIN 25% 12.5GM 50ML 100 ML IV ONE (21:39)
[2021-02-22] MEDS ORDERED: VELPHORO500 MG PO (22:24)
[2021-02-23] VITALS (8 sets, daily range): BP systolic 109–127; BP diastolic 67–89
[2021-02-23] MEDS ORDERED: HYDRALAZINE HCL 20 MG/ML VIAL IV PRN (01:00)
[2021-02-23 01:02] LABS: CREATINE KINASE MB 0.4 ng/mL (0-5.0)
[2021-02-23 04:46] LABS: BASOPHILS % 0.2 % (0.0-1.0); HEMATOCRIT 31.3 % (38.2-49.6); HEMOGLOBIN 10.3 g/dL (14.0-18.0); LYMPHOCYTES # (AUTO) 0.4 (1.0-3.2); LYMPHOCYTES % 4.3 % (18.0-39.1); MEAN CORPUSCULAR HEMOGLOBIN 28.5 pg (28-32); MEAN CORPUSCULAR HGB CONC 32.9 g/dL (31-35); MEAN CORPUSCULAR VOLUME 86.7 fL (81-99); MONOCYTES # (AUTO) 0.4 (0.2-0.8); MONOCYTES % 4.1 % (4.4-11.3); NEUTROPHILS # (AUTO) 8.1 (2.1-6.9); NEUTROPHILS % 82.5 % (38.7-80.0); PLATELET COUNT 128 x10e3/uL (140-360); RED BLOOD COUNT 3.61 x10e6/uL (4.3-5.7); RED CELL DISTRIBUTION WIDTH 14.4 % (11.7-14.4)
[2021-02-23 05:03] LABS: ALBUMIN 2.3 g/dL (3.5-5.0); ALBUMIN/GLOBULIN RATIO 0.6 (0.8-2.0); ANION GAP 20.8 mmol/L (8-16); CALCIUM 8.2 mg/dL (8.4-10.2); CREATININE, SERUM 13.34 mg/dL (0.72-1.25)
[2021-02-23 05:04] LABS: POTASSIUM 2.8 mmol/L (3.5-5.1)
[2021-02-23 05:05] LABS: CHOL/HDL RATIO 3.7 (3.9-4.7)
[2021-02-23 05:24] LABS: CREATINE KINASE MB 0.5 ng/mL (0-5.0)
[2021-02-23 05:32] LABS: THYROID STIMULATING HORMONE 0.425 uIU/mL (0.350-4.940)
[2021-02-23 06:27] LABS: LYMPHOCYTES % (MANUAL) 8 % (19-48); MONOCYTES % (MANUAL) 3 % (3.4-9.0); NEUTROPHILS % (MANUAL) 76 % (40-74)
[2021-02-23 06:28] LABS: BAND NEUTROPHILS % (MANUAL) 13 %; PLATELET ESTIMATE SLIGHTLY DECREASED; PLATELET MORPHOLOGY COMMENT NORMAL; RBC MORPHOLOGY COMMENT NORMAL
[2021-02-23] MEDS ORDERED: FAMOTIDINE 20 MG TAB PO ONE (07:30)
[2021-02-23] MEDS: SUCROFERRIC OXYHYDROXIDE PO SCH ×3 (08:00→17:00)
[2021-02-23] MEDS: CHOLECALCIFEROL 1,000 UNIT TAB PO SCH (08:58)
[2021-02-23] MEDS: TAMSULOSIN HCL 0.4 MG CAP PO SCH (08:58)
[2021-02-23] MEDS ORDERED: CEFEPIME 1 GM in SODIUM CHLORIDE 0.9% 50ML 50 ML IV SCH ×2 (09:00→12:00)
[2021-02-23] MEDS ORDERED: EPOETIN ALFA-EPBX 10,000 UNIT/ML VIAL SC ONE (12:00)
[2021-02-23 12:57] LABS: CREATINE KINASE MB 0.7 ng/mL (0-5.0)
[2021-02-23] MEDS ORDERED: CEFTAZIDIME 1 GM VIAL IV SCH (13:30)
[2021-02-23] MEDS ORDERED: CEFTAZIDIME SOD 1 GM/NS 50ML 50 ML IV ONE (13:45)
[2021-02-23] MEDS: FAMOTIDINE 20 MG TAB PO SCH ×2 (14:07→16:02)
[2021-02-23] MEDS ORDERED: SODIUM CHLORIDE 0.9% 500ML 500 ML IV ONE (14:45)
[2021-02-23] MEDS ORDERED: SODIUM CHLORIDE 0.9% 250ML 250 ML ONE (16:31)
[2021-02-23] MEDS ORDERED: Vancomycin IV 1 GM in SODIUM CHLORIDE 0.9% 250ML 250 ML IV SCH (17:00)
[2021-02-23] MEDS: ACETAMINOPHEN 325 MG TAB PO PRN (19:01)
[2021-02-23] MEDS: TEMAZEPAM 15 MG CAP PO SCH (20:46)
[2021-02-24] VITALS (9 sets, daily range): BP systolic 109–147; BP diastolic 77–98
[2021-02-24 05:13] LABS: BASOPHILS % 0.3 % (0.0-1.0); EOSINOPHILS % 0.1 % (0.0-6.0); HEMATOCRIT 33.7 % (38.2-49.6); LYMPHOCYTES # (AUTO) 0.7 (1.0-3.2); MEAN CORPUSCULAR HEMOGLOBIN 28.3 pg (28-32); MEAN CORPUSCULAR HGB CONC 32.6 g/dL (31-35); MEAN CORPUSCULAR VOLUME 86.6 fL (81-99); MONOCYTES # (AUTO) 0.3 (0.2-0.8); MONOCYTES % 4.1 % (4.4-11.3); NEUTROPHILS % 83.2 % (38.7-80.0); PLATELET COUNT 138 x10e3/uL (140-360); RED BLOOD COUNT 3.89 x10e6/uL (4.3-5.7); RED CELL DISTRIBUTION WIDTH 14.6 % (11.7-14.4)
[2021-02-24 05:47] LABS: ALBUMIN 2.1 g/dL (3.5-5.0); ALBUMIN/GLOBULIN RATIO 0.5 (0.8-2.0); ANION GAP 17.6 mmol/L (8-16); CALCIUM 8.8 mg/dL (8.4-10.2); CREATININE, SERUM 12.07 mg/dL (0.72-1.25)
[2021-02-24 05:49] LABS: POTASSIUM 2.6 mmol/L (3.5-5.1)
[2021-02-24] MEDS ORDERED: POTASSIUM CHLORIDE 20MEQ/100ML 100 ML IV ONE (07:45)
[2021-02-24] MEDS: SUCROFERRIC OXYHYDROXIDE PO SCH ×3 (08:00→15:08)
[2021-02-24] MEDS ORDERED: POTASSIUM CHLORIDE 20 MEQ TAB CR PO ONE (08:00)
[2021-02-24] MEDS: TAMSULOSIN HCL 0.4 MG CAP PO SCH (09:05)
[2021-02-24] MEDS: CHOLECALCIFEROL 1,000 UNIT TAB PO SCH (09:05)
[2021-02-24] MEDS: FAMOTIDINE 20 MG TAB PO SCH ×2 (09:05→15:29)
[2021-02-24] MEDS: MEROPENEM 500 MG in SODIUM CHLORIDE 0.9% 50ML 50 ML IV SCH (09:13)
[2021-02-24] MEDS: FLUCONAZOLE 100 MG TAB PO SCH (13:08)
[2021-02-24] MEDS ORDERED: SODIUM CHLORIDE 0.9% 250ML 250 ML ONE (13:09)
[2021-02-24] MEDS: TEMAZEPAM 15 MG CAP PO SCH (21:19)
[2021-02-25] VITALS (8 sets, daily range): BP systolic 138–163; BP diastolic 91–110
[2021-02-25] MEDS: ACETAMINOPHEN 325 MG TAB PO PRN ×2 (04:46→10:55)
[2021-02-25 05:17] LABS: BASOPHILS % 0.3 % (0.0-1.0); EOSINOPHILS # (AUTO) 0.1 (0.0-0.4); EOSINOPHILS % 0.9 % (0.0-6.0); HEMOGLOBIN 11.2 g/dL (14.0-18.0); LYMPHOCYTES # (AUTO) 0.7 (1.0-3.2); MEAN CORPUSCULAR HEMOGLOBIN 28.4 pg (28-32); MEAN CORPUSCULAR HGB CONC 32.9 g/dL (31-35); MEAN CORPUSCULAR VOLUME 86.1 fL (81-99); MONOCYTES # (AUTO) 0.4 (0.2-0.8); MONOCYTES % 5.5 % (4.4-11.3); NEUTROPHILS # (AUTO) 5.4 (2.1-6.9); NEUTROPHILS % 81.8 % (38.7-80.0); PLATELET COUNT 145 x10e3/uL (140-360); RED BLOOD COUNT 3.95 x10e6/uL (4.3-5.7); RED CELL DISTRIBUTION WIDTH 14.4 % (11.7-14.4)
[2021-02-25 05:47] LABS: ANION GAP 18.6 mmol/L (8-16); CALCIUM 8.9 mg/dL (8.4-10.2); CREATININE, SERUM 10.71 mg/dL (0.72-1.25)
[2021-02-25 05:49] LABS: POTASSIUM 2.6 mmol/L (3.5-5.1)
[2021-02-25] MEDS ORDERED: POTASSIUM CHLORIDE 20 MEQ TAB CR PO ONE (07:30)
[2021-02-25] MEDS: TAMSULOSIN HCL 0.4 MG CAP PO SCH (09:45)
[2021-02-25] MEDS: FLUCONAZOLE 100 MG TAB PO SCH (09:45)
[2021-02-25] MEDS: CHOLECALCIFEROL 1,000 UNIT TAB PO SCH (09:45)
[2021-02-25] MEDS: MEROPENEM 500 MG in SODIUM CHLORIDE 0.9% 50ML 50 ML IV SCH (09:45)
[2021-02-25] MEDS: FAMOTIDINE 20 MG TAB PO SCH ×2 (09:45→16:34)
[2021-02-25] MEDS: SUCROFERRIC OXYHYDROXIDE PO SCH ×3 (09:46→17:00)
[2021-02-25] MEDS ORDERED: HYDROMORPHONE 1MG/1ML INJ IV PRN (11:15)
[2021-02-25] MEDS ORDERED: LACTULOSE SYRUP 20 GM/30 ML UDC PO ONE (11:45)
[2021-02-25] MEDS ORDERED: POTASSIUM CHLORIDE 20MEQ/100ML 300 ML IV ONE (11:45)
[2021-02-25] MEDS ORDERED: HEPARIN SOD (PORCINE) 1000 UNIT/ML SDV IV ONE (16:00)
[2021-02-25] MEDS: TEMAZEPAM 15 MG CAP PO SCH (21:26)
[2021-02-26] VITALS (8 sets, daily range): BP systolic 131–157; BP diastolic 94–109
[2021-02-26 05:58] LABS: ALBUMIN/GLOBULIN RATIO 0.4 (0.8-2.0); ANION GAP 17.6 mmol/L (8-16); CALCIUM 8.8 mg/dL (8.4-10.2); CREATININE, SERUM 9.47 mg/dL (0.72-1.25); MAGNESIUM 1.6 MG/DL (1.3-2.1); PHOSPHORUS 2.8 MG/DL (2.3-4.7)
[2021-02-26 06:10] LABS: POTASSIUM 2.6 mmol/L (3.5-5.1)
[2021-02-26] MEDS ORDERED: POTASSIUM CHLORIDE 20 MEQ TAB CR PO SCH (06:30)
[2021-02-26] MEDS ORDERED: POTASSIUM CHLORIDE 20 MEQ TAB CR PO ONE (07:30)
[2021-02-26] MEDS: SUCROFERRIC OXYHYDROXIDE PO SCH ×3 (08:00→15:57)
[2021-02-26] MEDS: FLUCONAZOLE 100 MG TAB PO SCH (09:25)
[2021-02-26] MEDS: CHOLECALCIFEROL 1,000 UNIT TAB PO SCH (09:25)
[2021-02-26] MEDS: TAMSULOSIN HCL 0.4 MG CAP PO SCH (09:25)
[2021-02-26] MEDS: MEROPENEM 500 MG in SODIUM CHLORIDE 0.9% 50ML 50 ML IV SCH (09:25)
[2021-02-26] MEDS: FAMOTIDINE 20 MG TAB PO SCH ×2 (09:25→17:08)
[2021-02-26] MEDS ORDERED: POTASSIUM CHLORIDE 20MEQ/100ML 100 ML IV ONE (09:45)
[2021-02-26] MEDS ORDERED: HYDROMORPHONE 1MG/1ML INJ IV PRN (09:45)
[2021-02-26] MEDS ORDERED: HYDROMORPHONE 1MG/1ML INJ IV STA (09:45)
[2021-02-26] MEDS ORDERED: POTASSIUM CHLORIDE 20MEQ/100ML 200 ML IV ONE (10:45)
[2021-02-26] MEDS ORDERED: HYDROMORPHONE 1MG/1ML INJ IV ONE (10:45)
[2021-02-26] MEDS ORDERED: LIDOCAINE HCL 1% LOCAL INJ 20 ML VIAL ONE (11:02)
[2021-02-26] MEDS ORDERED: SODIUM CHLORIDE 0.9% 250ML 250 ML ONE ×2 (11:02→16:15)
[2021-02-26] MEDS ORDERED: MIDAZOLAM HCL 2 MG/2 ML VIAL ONE (11:08)
[2021-02-26] MEDS ORDERED: FENTANYL CITRATE/PF 100MCG/2 ML INJ ONE (11:08)
[2021-02-26] MEDS ORDERED: HEPARIN SOD (PORCINE) 1000 UNIT/ML SDV ONE ×2 (11:20→17:29)
[2021-02-26] MEDS ORDERED: GENTAMICIN 120MG/NS 100ML 100 ML IV ONE (16:30)
[2021-02-26] MEDS ORDERED: MANNITOL 25% 12.5GM/50 ML VIAL IV PRN (17:00)
[2021-02-26] MEDS ORDERED: SODIUM CHLORIDE 0.9% 250ML 500 ML IV PRN (17:00)
[2021-02-26] MEDS ORDERED: HEPARIN SOD (PORCINE) 1000 UNIT/ML SDV IV PRN (17:00)
[2021-02-26] MEDS ORDERED: SODIUM CHLORIDE 0.9% 1000ML 2,000 ML IV PRN (17:00)
[2021-02-26] MEDS ORDERED: ALBUMIN 25% 12.5GM 0.25 GM/ML BTL IV PRN (17:00)
[2021-02-26] MEDS ORDERED: MANNITOL 25% 12.5GM/50ML 100 ML ONE (17:29)
[2021-02-26] MEDS ORDERED: SODIUM CHLORIDE 0.9% 1000ML 2,000 ML ONE (17:30)
[2021-02-26] MEDS: HYDROMORPHONE 1MG/1ML INJ IV PRN (21:00)
[2021-02-26] MEDS: TEMAZEPAM 15 MG CAP PO SCH (21:00)
[2021-02-27] VITALS (8 sets, daily range): BP systolic 99–146; BP diastolic 71–93
[2021-02-27 05:01] LABS: BASOPHILS # (AUTO) 0.1 (0.0-0.1); BASOPHILS % 1.1 % (0.0-1.0); EOSINOPHILS # (AUTO) 0.1 (0.0-0.4); EOSINOPHILS % 1.6 % (0.0-6.0); HEMOGLOBIN 11.5 g/dL (14.0-18.0); LYMPHOCYTES # (AUTO) 1.2 (1.0-3.2); LYMPHOCYTES % 13.9 % (18.0-39.1); MEAN CORPUSCULAR HEMOGLOBIN 28.4 pg (28-32); MEAN CORPUSCULAR HGB CONC 31.1 g/dL (31-35); MEAN CORPUSCULAR VOLUME 91.4 fL (81-99); MONOCYTES # (AUTO) 0.9 (0.2-0.8); MONOCYTES % 11.3 % (4.4-11.3); NEUTROPHILS # (AUTO) 5.8 (2.1-6.9); NEUTROPHILS % 69.3 % (38.7-80.0); PLATELET COUNT 148 x10e3/uL (140-360); RED BLOOD COUNT 4.05 x10e6/uL (4.3-5.7); RED CELL DISTRIBUTION WIDTH 15.2 % (11.7-14.4)
[2021-02-27 05:21] LABS: ALBUMIN/GLOBULIN RATIO 0.4 (0.8-2.0); ANION GAP 17.7 mmol/L (8-16); CREATININE, SERUM 8.61 mg/dL (0.72-1.25); POTASSIUM 3.7 mmol/L (3.5-5.1)
[2021-02-27] MEDS: SUCROFERRIC OXYHYDROXIDE PO SCH ×3 (08:00→16:47)
[2021-02-27 08:58] LABS: EOSINOPHILS % (MANUAL) 3 % (0-7); LYMPHOCYTES % (MANUAL) 9 % (19-48); METAMYELOCYTES % (MANUAL) 1 % (0-0); MONOCYTES % (MANUAL) 11 % (3.4-9.0); NEUTROPHILS % (MANUAL) 76 % (40-74)
[2021-02-27] MEDS: MEROPENEM 500 MG in SODIUM CHLORIDE 0.9% 50ML 50 ML IV SCH (09:00)
[2021-02-27 09:01] LABS: PLATELET ESTIMATE SLIGHTLY DECREASED
[2021-02-27 09:02] LABS: PLATELET MORPHOLOGY COMMENT FEW LARGE; RBC MORPHOLOGY COMMENT NORMAL
[2021-02-27] MEDS ORDERED: LIDOCAINE HCL 1% LOCAL INJ 20 ML VIAL ONE (10:44)
[2021-02-27] MEDS ORDERED: HYDROCODONE/APAP 5MG-325MG TAB PO PRN (12:45)
[2021-02-27] MEDS: CHOLECALCIFEROL 1,000 UNIT TAB PO SCH (15:00)
[2021-02-27] MEDS: TAMSULOSIN HCL 0.4 MG CAP PO SCH (15:00)
[2021-02-27] MEDS: FLUCONAZOLE 100 MG TAB PO SCH (15:00)
[2021-02-27] MEDS: FAMOTIDINE 20 MG TAB PO SCH ×2 (15:00→16:30)
[2021-02-27] MEDS: HYDROMORPHONE 1MG/1ML INJ IV PRN ×2 (15:06→20:46)
[2021-02-27] MEDS: TEMAZEPAM 15 MG CAP PO SCH (20:46)
[2021-02-28] VITALS (8 sets, daily range): BP systolic 115–152; BP diastolic 85–97
[2021-02-28 06:45] LABS: ALBUMIN/GLOBULIN RATIO 0.4 (0.8-2.0); ANION GAP 17.5 mmol/L (8-16); CALCIUM 8.4 mg/dL (8.4-10.2); CREATININE, SERUM 5.82 mg/dL (0.72-1.25); POTASSIUM 3.5 mmol/L (3.5-5.1)
[2021-02-28] MEDS: FAMOTIDINE 20 MG TAB PO SCH ×2 (07:30→16:30)
[2021-02-28] MEDS: SUCROFERRIC OXYHYDROXIDE PO SCH ×4 (08:00→16:56)
[2021-02-28] MEDS: FLUCONAZOLE 100 MG TAB PO SCH (09:00)
[2021-02-28] MEDS: TAMSULOSIN HCL 0.4 MG CAP PO SCH (09:00)
[2021-02-28] MEDS: MEROPENEM 500 MG in SODIUM CHLORIDE 0.9% 50ML 50 ML IV SCH (09:00)
[2021-02-28] MEDS: CHOLECALCIFEROL 1,000 UNIT TAB PO SCH (09:00)
[2021-02-28] MEDS: HYDROMORPHONE 1MG/1ML INJ IV PRN ×2 (10:58→20:28)
[2021-02-28] MEDS: TEMAZEPAM 15 MG CAP PO SCH (20:27)
[2021-03-01] VITALS (7 sets, daily range): BP systolic 117–162; BP diastolic 79–99
[2021-03-01] MEDS: SUCROFERRIC OXYHYDROXIDE PO SCH ×3 (08:00→17:00)
[2021-03-01] MEDS: FLUCONAZOLE 100 MG TAB PO SCH (09:56)
[2021-03-01] MEDS: TAMSULOSIN HCL 0.4 MG CAP PO SCH (09:56)
[2021-03-01] MEDS: MEROPENEM 500 MG in SODIUM CHLORIDE 0.9% 50ML 50 ML IV SCH (09:56)
[2021-03-01] MEDS: CHOLECALCIFEROL 1,000 UNIT TAB PO SCH (09:57)
[2021-03-01] MEDS: FAMOTIDINE 20 MG TAB PO SCH ×2 (09:57→17:31)
[2021-03-01] MEDS: HYDROMORPHONE 1MG/1ML INJ IV PRN (21:15)
[2021-03-01] MEDS: TEMAZEPAM 15 MG CAP PO SCH (21:51)
[2021-03-02] VITALS (7 sets, daily range): BP systolic 97–162; BP diastolic 65–95
[2021-03-02] MEDS: TAMSULOSIN HCL 0.4 MG CAP PO SCH (10:27)
[2021-03-02] MEDS: SUCROFERRIC OXYHYDROXIDE PO SCH ×2 (10:27→12:58)
[2021-03-02] MEDS: FAMOTIDINE 20 MG TAB PO SCH ×2 (10:27→16:44)
[2021-03-02] MEDS: FLUCONAZOLE 100 MG TAB PO SCH (10:27)
[2021-03-02] MEDS: MEROPENEM 500 MG in SODIUM CHLORIDE 0.9% 50ML 50 ML IV SCH (10:27)
[2021-03-02] MEDS: CHOLECALCIFEROL 1,000 UNIT TAB PO SCH (10:27)
[2021-03-02 11:19] LABS: ANION GAP 17.4 mmol/L (8-16); CREATININE, SERUM 7.39 mg/dL (0.72-1.25); POTASSIUM 3.4 mmol/L (3.5-5.1)
[2021-03-02] MEDS ORDERED: ONDANSETRON HCL 4 MG ORAL DISINTEGRATING TAB PO PRN (12:45)
== END 2021-03-02 16:30 | disposition home or self-care (01) | DRG 907 ==
LOC: ER 15:36 → ERHOLD 18:51 → MED/SURG2 20:32
PROVIDERS: ADMIT Internal Medicine; ATTEND Internal Medicine
PROC: 3E1M39Z Irrigation of Peritoneal Cavity using Dialysate, Percutaneous Approach (ICD-10-PCS; 2021-02-23)
PROC: 0JH63XZ Insertion of Tunneled Vascular Access Device into Chest Subcutaneous Tissue and Fascia, Percutaneous Approach (ICD-10-PCS; 2021-02-26)
PROC: 02H633Z Insertion of Infusion Device into Right Atrium, Percutaneous Approach (ICD-10-PCS; 2021-02-26)
PROC: B548ZZA Ultrasonography of Superior Vena Cava, Guidance (ICD-10-PCS; 2021-02-26)
PROC: 5A1D70Z Performance of Urinary Filtration, Intermittent, Less than 6 Hours Per Day (ICD-10-PCS; 2021-02-27)
PROC: 0WPG03Z Removal of Infusion Device from Peritoneal Cavity, Open Approach (ICD-10-PCS; principal; 2021-02-27 14:00)
DX: T85.71XA Infection and inflammatory reaction due to peritoneal dialysis catheter, initial encounter (principal); N18.6 End stage renal disease; A41.51 Sepsis due to Escherichia coli [E. coli]; K65.8 Other peritonitis; I13.2 Hypertensive heart and chronic kidney disease with heart failure and with stage 5 chronic kidney disease, or end stage renal disease; I50.32 Chronic diastolic (congestive) heart failure; N25.81 Secondary hyperparathyroidism of renal origin; T86.12 Kidney transplant failure; Z16.12 Extended spectrum beta lactamase (ESBL) resistance; E78.5 Hyperlipidemia, unspecified; N40.0 Benign prostatic hyperplasia without lower urinary tract symptoms; Z20.822 Contact with and (suspected) exposure to COVID-19; Z99.2 Dependence on renal dialysis; E87.6 Hypokalemia; B96.20 Unspecified Escherichia coli [E. coli] as the cause of diseases classified elsewhere; R53.81 Other malaise; Z96.651 Presence of right artificial knee joint
CPT/HCPCS: 36415; 36558; 71045; 71046; 74177; 74470; 76937; 77001; 80048; 80053; 80061; 82150; 82550; 82553; 82948; 83036; 83605; 83690; 83735; 83880; 84100; 84443; 84484; 85025; 85610; 85730; 87040; 87071; 87075; 87186; 87205; 89051; 93005; 96376; 99284; C1769; C1892; J0360; J0692; J0713; J1170; J1580; J1644; J2001; J2150; J2185; J2250; J2405; J2710; J3010; J3370; J3480; J7030; J7040; J7050; Q9967; U0002

== ENCOUNTER 2021-07-22 13:17 | Inpatient (IN) | payer MEDICARE, OTHER ==
[~2021-07-22] VITALS: Ht 170.2 cm; Wt 72.1 kg
[~2021-07-22 13:17] MED LIST changes: +VELPHORO500 MG PO
[2021-07-22 13:51] LABS: BASOPHILS # (AUTO) 0.1 (0.0-0.1); BASOPHILS % 0.4 % (0.0-1.0); EOSINOPHILS # (AUTO) 0.2 (0.0-0.4); EOSINOPHILS % 1.1 % (0.0-6.0); HEMATOCRIT 36.4 % (38.2-49.6); HEMOGLOBIN 11.5 g/dL (14.0-18.0); LYMPHOCYTES # (AUTO) 2.1 (1.0-3.2); LYMPHOCYTES % 14.6 % (18.0-39.1); MEAN CORPUSCULAR HGB CONC 31.6 g/dL (31-35); MEAN CORPUSCULAR VOLUME 88.6 fL (81-99); MONOCYTES # (AUTO) 0.8 (0.2-0.8); MONOCYTES % 5.6 % (4.4-11.3); NEUTROPHILS # (AUTO) 10.9 (2.1-6.9); NEUTROPHILS % 77.5 % (38.7-80.0); PLATELET COUNT 244 x10e3/uL (140-360); RED BLOOD COUNT 4.11 x10e6/uL (4.3-5.7); RED CELL DISTRIBUTION WIDTH 17.1 % (11.7-14.4)
[2021-07-22] MEDS ORDERED: POVIDONE IODINE 0.05% 0.05 % ML PO ONE (14:11)
[2021-07-22] MEDS ORDERED: PROPOFOL IV EMULSION 10 MG/ML 20 ML VIAL ONE (14:11)
[2021-07-22] MEDS ORDERED: LIDOCAINE HCL 2% LOCAL INJ 5 ML SDV VIAL INJ ONE (14:11)
[2021-07-22] MEDS ORDERED: ONDANSETRON HCL INJ 2MG/ML 2ML 2 MG/ML VIAL ONE (14:11)
[2021-07-22] MEDS ORDERED: SEVOFLURANE INHAL SOLN 250 ML PEN BTL ONE (14:11)
[2021-07-22 14:15] LABS: INR 1.1
[2021-07-22 14:16] LABS: PARTIAL THROMBOPLASTIN TIME 35.3 seconds (23.8-35.5)
[2021-07-22 14:18] LABS: CREATINE KINASE MB 0.6 ng/mL (0-5.0)
[2021-07-22 14:28] LABS: ALBUMIN 2.9 g/dL (3.5-5.0); ALBUMIN/GLOBULIN RATIO 0.6 (0.8-2.0); ANION GAP 21.3 mmol/L (8-16); CALCIUM 9.1 mg/dL (8.4-10.2); CREATININE, SERUM 10.83 mg/dL (0.72-1.25)
[2021-07-22 14:31] LABS: POTASSIUM 5.3 mmol/L (3.5-5.1)
[2021-07-22 14:42] LABS: MAGNESIUM 2.2 MG/DL (1.3-2.1); PHOSPHORUS 5.1 MG/DL (2.3-4.7)
[2021-07-22] MEDS ORDERED: SODIUM CHLORIDE 0.9% 1000ML 2,000 ML ONE ×2 (16:53→16:56)
[2021-07-22] MEDS ORDERED: SODIUM CHLORIDE 0.9% 1000ML 2,000 ML IV PRN (17:00)
[2021-07-22] MEDS ORDERED: HEPARIN SOD (PORCINE) 1000 UNIT/ML SDV IV PRN (17:00)
[2021-07-22] MEDS ORDERED: RENAPLEX-D TAB1 EACH PO (17:20)
[2021-07-22] MEDS ORDERED: COREG12.5 MG PO (17:20)
[2021-07-22] MEDS ORDERED: AMLODIPINE BESYL5 MG PO (17:20)
[2021-07-22 18:03] VITALS: BP 127/81
[2021-07-22 18:05] VITALS: BP 127/81
[2021-07-22 18:19] LABS: CHOL/HDL RATIO 5.3 (3.9-4.7)
[2021-07-22] MEDS: ASPIRIN 325 MG TAB PO SCH (18:45)
[2021-07-22] MEDS ORDERED: ASPIRIN 81 MG CHEW TAB PO ONE (18:50)
[2021-07-22 18:52] LABS: CREATINE KINASE MB 0.6 ng/mL (0-5.0)
[2021-07-22 19:57] VITALS: BP 126/75
[2021-07-22 21:22] VITALS: BP 126/75
[2021-07-22] MEDS: TEMAZEPAM 15 MG CAP PO SCH (21:22)
[2021-07-23] VITALS (10 sets, daily range): BP systolic 101–147; BP diastolic 58–92
[2021-07-23 02:32] LABS: CREATINE KINASE MB 0.4 ng/mL (0-5.0)
[2021-07-23 05:03] LABS: BASOPHILS # (AUTO) 0.1 (0.0-0.1); BASOPHILS % 0.5 % (0.0-1.0); EOSINOPHILS # (AUTO) 0.2 (0.0-0.4); EOSINOPHILS % 1.2 % (0.0-6.0); HEMATOCRIT 32.7 % (38.2-49.6); HEMOGLOBIN 10.5 g/dL (14.0-18.0); LYMPHOCYTES # (AUTO) 1.7 (1.0-3.2); MEAN CORPUSCULAR HEMOGLOBIN 28.7 pg (28-32); MEAN CORPUSCULAR HGB CONC 32.1 g/dL (31-35); MEAN CORPUSCULAR VOLUME 89.3 fL (81-99); MONOCYTES % 7.1 % (4.4-11.3); NEUTROPHILS # (AUTO) 10.7 (2.1-6.9); NEUTROPHILS % 78.5 % (38.7-80.0); PLATELET COUNT 266 x10e3/uL (140-360); RED BLOOD COUNT 3.66 x10e6/uL (4.3-5.7); RED CELL DISTRIBUTION WIDTH 17.2 % (11.7-14.4)
[2021-07-23 05:42] LABS: ALBUMIN 2.7 g/dL (3.5-5.0); ALBUMIN/GLOBULIN RATIO 0.5 (0.8-2.0); ANION GAP 20.7 mmol/L (8-16); CALCIUM 9.1 mg/dL (8.4-10.2); CREATININE, SERUM 6.78 mg/dL (0.72-1.25); POTASSIUM 4.7 mmol/L (3.5-5.1)
[2021-07-23] MEDS ORDERED: HYDROCORTISONE ACETATE 25 MG/SUPP.RECT SUPP RC SCH (06:45)
[2021-07-23] MEDS ORDERED: SENOKOT8.6 MG PO (06:46)
[2021-07-23] MEDS ORDERED: ANUCORT-HC25 MG RC (06:46)
[2021-07-23] MEDS ORDERED: LISINOPRIL2.5 MG PO (06:46)
[2021-07-23] MEDS ORDERED: ECOTRIN81 MG PO (06:46)
[2021-07-23] MEDS ORDERED: SODIUM CHLORIDE 0.9% 250ML 250 ML ONE (08:17)
[2021-07-23] MEDS: PIPERACILLIN/TAZOBACTAM 2.25 GM in SODIUM CHLORIDE 0.9% 50ML 50 ML IV SCH ×3 (09:34→20:20)
[2021-07-23] MEDS: ASPIRIN 325 MG TAB PO SCH (09:35)
[2021-07-23] MEDS: CARVEDILOL 3.125 MG TAB PO SCH ×2 (09:36→16:36)
[2021-07-23] MEDS: SENNOSIDES 8.6 MG TAB PO SCH (09:36)
[2021-07-23] MEDS: LISINOPRIL 2.5 MG TAB PO SCH (09:36)
[2021-07-23] MEDS: TAMSULOSIN HCL 0.4 MG CAP PO SCH (09:36)
[2021-07-23] MEDS: Morphine 4mg Syringe 4 MG/ML INJ IV PRN ×2 (09:53→14:58)
[2021-07-23] MEDS: Vancomycin IV 1 GM in SODIUM CHLORIDE 0.9% 250ML 250 ML IV SCH (10:00)
[2021-07-23 11:31] LABS: CREATINE KINASE MB 0.5 ng/mL (0-5.0)
[2021-07-23] MEDS: TEMAZEPAM 15 MG CAP PO SCH (20:20)
[2021-07-24] VITALS (8 sets, daily range): BP systolic 100–138; BP diastolic 54–86
[2021-07-24] MEDS ORDERED: ACETAMINOPHEN 325 MG TAB PO PRN (01:45)
[2021-07-24] MEDS: PIPERACILLIN/TAZOBACTAM 2.25 GM in SODIUM CHLORIDE 0.9% 50ML 50 ML IV SCH ×3 (01:49→20:54)
[2021-07-24 06:11] LABS: ANION GAP 18.8 mmol/L (8-16); CALCIUM 8.9 mg/dL (8.4-10.2); CREATININE, SERUM 9.81 mg/dL (0.72-1.25); POTASSIUM 4.8 mmol/L (3.5-5.1)
[2021-07-24] MEDS ORDERED: HEPARIN SOD (PORCINE) 1000 UNIT/ML SDV IV PRN (07:45)
[2021-07-24] MEDS: Morphine 4mg Syringe 4 MG/ML INJ IV PRN ×2 (09:10→20:48)
[2021-07-24] MEDS: Vancomycin IV 1 GM in SODIUM CHLORIDE 0.9% 250ML 250 ML IV SCH (11:21)
[2021-07-24] MEDS: TAMSULOSIN HCL 0.4 MG CAP PO SCH (13:18)
[2021-07-24] MEDS: ASPIRIN 325 MG TAB PO SCH (13:18)
[2021-07-24] MEDS: CARVEDILOL 3.125 MG TAB PO SCH (13:18)
[2021-07-24] MEDS: SENNOSIDES 8.6 MG TAB PO SCH (13:19)
[2021-07-24] MEDS: LISINOPRIL 2.5 MG TAB PO SCH (13:19)
[2021-07-24] MEDS ORDERED: SODIUM CHLORIDE 0.9% 50ML 50 ML ONE (15:35)
[2021-07-24] MEDS ORDERED: IOPAMIDOL 370 MG/ML 200 ML INFUS..BTL INJ ONE (15:36)
[2021-07-24] MEDS: TEMAZEPAM 15 MG CAP PO SCH (20:46)
[2021-07-25] VITALS (8 sets, daily range): BP systolic 100–134; BP diastolic 60–82
[2021-07-25] MEDS: PIPERACILLIN/TAZOBACTAM 2.25 GM in SODIUM CHLORIDE 0.9% 50ML 50 ML IV SCH ×2 (02:11→07:50)
[2021-07-25] MEDS ORDERED: SODIUM CHLORIDE 0.9% 500ML 500 ML ONE (07:18)
[2021-07-25] MEDS ORDERED: BUPIVACAINE HCL 0.5% INJ 30 ML VIAL INJ ONE (08:11)
[2021-07-25] MEDS ORDERED: HYDROCODONE/APAP 5MG-325MG TAB PO PRN (08:15)
[2021-07-25] MEDS ORDERED: FENTANYL CITRATE/PF 100MCG/2 ML INJ ONE ×2 (08:40→13:21)
[2021-07-25] MEDS: SENNOSIDES 8.6 MG TAB PO SCH (10:15)
[2021-07-25] MEDS: CARVEDILOL 3.125 MG TAB PO SCH ×3 (10:15→17:40)
[2021-07-25] MEDS: TAMSULOSIN HCL 0.4 MG CAP PO SCH (10:15)
[2021-07-25] MEDS: ASPIRIN 325 MG TAB PO SCH (10:15)
[2021-07-25] MEDS: LISINOPRIL 2.5 MG TAB PO SCH (10:15)
[2021-07-25] MEDS: Morphine 4mg Syringe 4 MG/ML INJ IV PRN (10:16)
[2021-07-25 11:18] LABS: BASOPHILS # (AUTO) 0.1 (0.0-0.1); BASOPHILS % 0.5 % (0.0-1.0); EOSINOPHILS # (AUTO) 0.2 (0.0-0.4); EOSINOPHILS % 1.6 % (0.0-6.0); HEMATOCRIT 27.6 % (38.2-49.6); HEMOGLOBIN 8.7 g/dL (14.0-18.0); LYMPHOCYTES # (AUTO) 1.4 (1.0-3.2); LYMPHOCYTES % 8.9 % (18.0-39.1); MEAN CORPUSCULAR HEMOGLOBIN 28.5 pg (28-32); MEAN CORPUSCULAR HGB CONC 31.5 g/dL (31-35); MEAN CORPUSCULAR VOLUME 90.5 fL (81-99); MONOCYTES # (AUTO) 1.4 (0.2-0.8); MONOCYTES % 9.4 % (4.4-11.3); NEUTROPHILS # (AUTO) 11.9 (2.1-6.9); NEUTROPHILS % 78.7 % (38.7-80.0); PLATELET COUNT 245 x10e3/uL (140-360); RED BLOOD COUNT 3.05 x10e6/uL (4.3-5.7)
[2021-07-25] MEDS: TEMAZEPAM 15 MG CAP PO SCH (20:20)
[2021-07-26] VITALS (9 sets, daily range): BP systolic 107–135; BP diastolic 63–82
[2021-07-26 06:17] LABS: BASOPHILS # (AUTO) 0.1 (0.0-0.1); BASOPHILS % 0.6 % (0.0-1.0); EOSINOPHILS # (AUTO) 0.5 (0.0-0.4); HEMATOCRIT 26.9 % (38.2-49.6); HEMOGLOBIN 8.5 g/dL (14.0-18.0); LYMPHOCYTES # (AUTO) 2.1 (1.0-3.2); MEAN CORPUSCULAR HEMOGLOBIN 28.2 pg (28-32); MEAN CORPUSCULAR HGB CONC 31.6 g/dL (31-35); MEAN CORPUSCULAR VOLUME 89.4 fL (81-99); MONOCYTES # (AUTO) 1.2 (0.2-0.8); MONOCYTES % 9.4 % (4.4-11.3); NEUTROPHILS # (AUTO) 8.2 (2.1-6.9); PLATELET COUNT 257 x10e3/uL (140-360); RED BLOOD COUNT 3.01 x10e6/uL (4.3-5.7); RED CELL DISTRIBUTION WIDTH 17.9 % (11.7-14.4)
[2021-07-26] MEDS: CARVEDILOL 3.125 MG TAB PO SCH ×2 (09:42→17:02)
[2021-07-26] MEDS: ASPIRIN 325 MG TAB PO SCH (09:42)
[2021-07-26] MEDS: TAMSULOSIN HCL 0.4 MG CAP PO SCH (09:42)
[2021-07-26] MEDS: LISINOPRIL 2.5 MG TAB PO SCH (09:42)
[2021-07-26] MEDS: SENNOSIDES 8.6 MG TAB PO SCH (09:42)
[2021-07-26] MEDS ORDERED: CEFUROXIME250 MG PO (18:22)
== END 2021-07-26 21:00 | disposition home or self-care (01) | DRG 393 ==
LOC: ER 13:30 → ERHOLD 15:40 → MED/SURG 16:15 → IMCU 16:47 → OBSVTOIN 07-23 07:06
PROVIDERS: ADMIT Internal Medicine; ATTEND Internal Medicine
PROC: 5A1D70Z Performance of Urinary Filtration, Intermittent, Less than 6 Hours Per Day (ICD-10-PCS; 2021-07-22)
PROC: 0D9P3ZZ Drainage of Rectum, Percutaneous Approach (ICD-10-PCS; principal; 2021-07-25 07:41)
DX: K61.1 Rectal abscess (principal); U07.1 COVID-19; N18.6 End stage renal disease; I13.2 Hypertensive heart and chronic kidney disease with heart failure and with stage 5 chronic kidney disease, or end stage renal disease; I50.32 Chronic diastolic (congestive) heart failure; N39.0 Urinary tract infection, site not specified; Z16.12 Extended spectrum beta lactamase (ESBL) resistance; Z99.2 Dependence on renal dialysis; E87.5 Hyperkalemia; R07.89 Other chest pain; B96.20 Unspecified Escherichia coli [E. coli] as the cause of diseases classified elsewhere; E78.00 Pure hypercholesterolemia, unspecified; Z96.651 Presence of right artificial knee joint
CPT/HCPCS: 36415; 71045; 72195; 74177; 80048; 80053; 80061; 80202; 82550; 82553; 83735; 83880; 84100; 84484; 85025; 85610; 85730; 86704; 86706; 87040; 87071; 87075; 87186; 87205; 87340; 93005; 93306; 93970; 99284; G0378; J1644; J2001; J2270; J2405; J2543; J3010; J3370; J7030; J7040; J7050; Q9967; U0002

== ENCOUNTER 2024-01-11 15:32 | Inpatient (IN) | payer MEDICARE ==
[~2024-01-11] VITALS: Ht 170.2 cm; Wt 72.1 kg
[~2024-01-11 15:32] MED LIST changes: +AMLODIPINE BESYL5 MG PO; +ANUCORT-HC25 MG RC; +CEFUROXIME250 MG PO; +COREG12.5 MG PO; +ECOTRIN81 MG PO; +LISINOPRIL2.5 MG PO; +RENAPLEX-D TAB1 EACH PO; +SENOKOT8.6 MG PO
[2024-01-11 16:40] LABS: BASOPHILS % 0.1 % (0.0-1.0); EOSINOPHILS # (AUTO) 0.1 (0.0-0.4); EOSINOPHILS % 0.6 % (0.0-6.0); HEMATOCRIT 30.9 % (38.2-49.6); HEMOGLOBIN 10.2 g/dL (14.0-18.0); LYMPHOCYTES # (AUTO) 0.9 (1.0-3.2); MEAN CORPUSCULAR HEMOGLOBIN 32.1 pg (28-32); MEAN CORPUSCULAR VOLUME 97.2 fL (81-99); MONOCYTES # (AUTO) 1.2 (0.2-0.8); MONOCYTES % 5.5 % (4.4-11.3); NEUTROPHILS # (AUTO) 19.4 (2.1-6.9); NEUTROPHILS % 88.8 % (38.7-80.0); PLATELET COUNT 145 x10e3/uL (140-360); RED BLOOD COUNT 3.18 x10e6/uL (4.3-5.7); RED CELL DISTRIBUTION WIDTH 14.8 % (11.7-14.4)
[2024-01-11] MEDS: SODIUM CHLORIDE 0.9% 500ML 500 ML IV STA (16:45)
[2024-01-11] MEDS: ACETAMINOPHEN 325 MG TAB PO ONE (16:50)
[2024-01-11 16:52] LABS: STREPTOCOCCUS GRP A ANTIGEN NEGATIVE (NEGATIVE)
[2024-01-11 16:54] LABS: ALBUMIN 3.5 g/dL (3.5-5.0); ALBUMIN/GLOBULIN RATIO 0.8 (0.8-2.0); ANION GAP 17.7 mmol/L (8-16); BILIRUBIN,TOTAL 1.1 mg/dL (0.2-1.2); CREATININE, SERUM 5.46 mg/dL (0.72-1.25); POTASSIUM 3.7 mmol/L (3.5-5.1); TOTAL PROTEIN 7.9 g/dL (6.5-8.1)
[2024-01-11 17:11] LABS: INFLUENZAE A&B ANTIGEN (RAPID) NEGATIVE (NEGATIVE)
[2024-01-11 17:12] LABS: RESPIRATORY SYNC. VIRUS POSITIVE (NEGATIVE)
[2024-01-11] MEDS ORDERED: Vancomycin IV 500 MG in SODIUM CHLORIDE 0.9% 100 ML IV SCH (17:30)
[2024-01-11 17:46] VITALS: PULSE 74; RESP 22; O2SAT 98
[2024-01-11] MEDS: Vancomycin IV 1 GM in SODIUM CHLORIDE 0.9% 250ML 250 ML IV SCH (18:13)
[2024-01-11 19:28] VITALS: PULSE 91; RESP 19; TEMP 98.8
[2024-01-11 22:10] VITALS: BP 152/95; PULSE 103; RESP 20; TEMP 98.8; O2SAT 94
[2024-01-11 23:09] VITALS: BP 132/69; PULSE 98; RESP 17; TEMP 99; O2SAT 95
[2024-01-11 23:10] VITALS: BP 150/86; PULSE 101; RESP 18; TEMP 100.1; O2SAT 95; O2SAT 96
[2024-01-11 23:49] VITALS: BP 132/69; PULSE 101; RESP 18; TEMP 99; O2SAT 96
[2024-01-12] VITALS (12 sets, daily range): BP systolic 117–148; BP diastolic 68–80; PULSE 82–99; RESP 18–20; TEMP 98–101.1; O2SAT 94–100
[2024-01-12 05:43] LABS: BASOPHILS % 0.1 % (0.0-1.0); HEMATOCRIT 30.6 % (38.2-49.6); HEMOGLOBIN 9.9 g/dL (14.0-18.0); LYMPHOCYTES # (AUTO) 0.7 (1.0-3.2); LYMPHOCYTES % 3.6 % (18.0-39.1); MEAN CORPUSCULAR HEMOGLOBIN 31.8 pg (28-32); MEAN CORPUSCULAR HGB CONC 32.4 g/dL (31-35); MEAN CORPUSCULAR VOLUME 98.4 fL (81-99); MONOCYTES % 5.2 % (4.4-11.3); NEUTROPHILS # (AUTO) 16.5 (2.1-6.9); NEUTROPHILS % 89.7 % (38.7-80.0); PLATELET COUNT 114 x10e3/uL (140-360); RED BLOOD COUNT 3.11 x10e6/uL (4.3-5.7); RED CELL DISTRIBUTION WIDTH 14.9 % (11.7-14.4); WHITE BLOOD COUNT 18.35 x10e3/uL (4.8-10.8)
[2024-01-12 06:13] LABS: ANION GAP 21.1 mmol/L (8-16); CALCIUM 8.1 mg/dL (8.4-10.2); CREATININE, SERUM 7.1 mg/dL (0.72-1.25); POTASSIUM 4.1 mmol/L (3.5-5.1)
[2024-01-12] MEDS: SODIUM CHLORIDE 0.9% 250ML 250 ML ONE (06:56)
[2024-01-12] MEDS ORDERED: ONDANSETRON HCL INJ 2MG/ML 2ML 2 MG/ML VIAL IV PRN (08:00)
[2024-01-12] MEDS ORDERED: HYDRALAZINE HCL 25 MG TAB PO PRN (08:00)
[2024-01-12] MEDS ORDERED: TEMAZEPAM 15 MG CAP PO PRN (08:00)
[2024-01-12] MEDS ORDERED: ACETAMINOPHEN 325 MG TAB PO PRN (08:00)
[2024-01-12] MEDS ORDERED: HYDRALAZINE HCL 20 MG/ML VIAL IV PRN (08:00)
[2024-01-12] MEDS ORDERED: ALBUTEROL/IPRATROPIUM 3 ML NEB NEB PRN (08:15)
[2024-01-12] MEDS ORDERED: BENZONATATE 100 MG CAP PO PRN (08:15)
[2024-01-12] MEDS: CARVEDILOL 12.5 MG TAB PO SCH (09:22)
[2024-01-12] MEDS: BENZONATATE 100 MG CAP PO SCH (09:22)
[2024-01-12] MEDS: AMLODIPINE BESYLATE 5 MG TAB PO SCH (09:23)
[2024-01-12] MEDS: TAMSULOSIN HCL 0.4 MG CAP PO SCH (09:23)
[2024-01-12 10:52] LABS: ALBUMIN 2.9 g/dL (3.5-5.0); BILIRUBIN,DIRECT 0.5 mg/dL (0.0-0.5)
[2024-01-12] MEDS: ALBUTEROL/IPRATROPIUM 3 ML NEB NEB SCH (11:31)
[2024-01-12] MEDS ORDERED: IOPAMIDOL 370 MG/ML 100 ML INFUS..BTL INJ ONE (15:41)
[2024-01-12] MEDS: DEXAMETHASONE SOD PHOS 10 MG/1 ML VIAL IV ONE (17:12)
[2024-01-13] VITALS (8 sets, daily range): BP systolic 103–124; BP diastolic 67–76; PULSE 71–90; RESP 16–20; TEMP 97.5–98.2; O2SAT 96–100
[2024-01-13 05:54] LABS: BASOPHILS % 0.1 % (0.0-1.0); HEMATOCRIT 28.8 % (38.2-49.6); HEMOGLOBIN 9.5 g/dL (14.0-18.0); LYMPHOCYTES # (AUTO) 0.4 (1.0-3.2); LYMPHOCYTES % 3.2 % (18.0-39.1); MEAN CORPUSCULAR HEMOGLOBIN 31.8 pg (28-32); MEAN CORPUSCULAR VOLUME 96.3 fL (81-99); MONOCYTES # (AUTO) 0.4 (0.2-0.8); MONOCYTES % 3.2 % (4.4-11.3); NEUTROPHILS # (AUTO) 11.6 (2.1-6.9); NEUTROPHILS % 91.3 % (38.7-80.0); PLATELET COUNT 100 x10e3/uL (140-360); RED BLOOD COUNT 2.99 x10e6/uL (4.3-5.7); RED CELL DISTRIBUTION WIDTH 14.7 % (11.7-14.4); WHITE BLOOD COUNT 12.69 x10e3/uL (4.8-10.8)
[2024-01-13 06:12] LABS: ANION GAP 19.2 mmol/L (8-16); CALCIUM 8.8 mg/dL (8.4-10.2); CREATININE, SERUM 9.24 mg/dL (0.72-1.25); POTASSIUM 4.2 mmol/L (3.5-5.1)
[2024-01-13 06:21] LABS: HEPATITIS B CORE AB TOTAL Negative (Negative)
[2024-01-13] MEDS ORDERED: Vancomycin IV 1 GM in SODIUM CHLORIDE 0.9% 250ML 250 ML IV SCH (10:30)
[2024-01-13] MEDS ORDERED: DEXTROSE 50% SYRINGE 50 ML IV PRN (10:30)
[2024-01-13] MEDS: INSULIN LISPRO 100 UNIT/1 ML 3ML VIAL SQ SCH (11:30)
[2024-01-13] MEDS: DEXAMETHASONE SOD PHOS 10 MG/1 ML VIAL IV SCH (13:07)
[2024-01-14] VITALS (12 sets, daily range): BP systolic 100–141; BP diastolic 57–84; PULSE 65–92; RESP 16–20; TEMP 97.4–97.8; O2SAT 98–100
[2024-01-14 06:52] LABS: BASOPHILS % 0.2 % (0.0-1.0); HEMATOCRIT 29.4 % (38.2-49.6); HEMOGLOBIN 9.6 g/dL (14.0-18.0); LYMPHOCYTES # (AUTO) 0.5 (1.0-3.2); MEAN CORPUSCULAR HEMOGLOBIN 31.4 pg (28-32); MEAN CORPUSCULAR HGB CONC 32.7 g/dL (31-35); MEAN CORPUSCULAR VOLUME 96.1 fL (81-99); MONOCYTES # (AUTO) 0.6 (0.2-0.8); NEUTROPHILS # (AUTO) 10.1 (2.1-6.9); NEUTROPHILS % 89.2 % (38.7-80.0); PLATELET COUNT 108 x10e3/uL (140-360); RED BLOOD COUNT 3.06 x10e6/uL (4.3-5.7); RED CELL DISTRIBUTION WIDTH 14.6 % (11.7-14.4)
[2024-01-14 07:00] LABS: ANION GAP 13.7 mmol/L (8-16); CALCIUM 9.2 mg/dL (8.4-10.2); CREATININE, SERUM 6.76 mg/dL (0.72-1.25); POTASSIUM 3.7 mmol/L (3.5-5.1)
[2024-01-15] VITALS (11 sets, daily range): BP systolic 114–141; BP diastolic 76–84; PULSE 60–81; RESP 16–18; TEMP 97.3–98.8; O2SAT 97–100
[2024-01-15 06:14] LABS: BASOPHILS % 0.2 % (0.0-1.0); HEMATOCRIT 28.5 % (38.2-49.6); HEMOGLOBIN 9.4 g/dL (14.0-18.0); LYMPHOCYTES # (AUTO) 0.6 (1.0-3.2); LYMPHOCYTES % 6.1 % (18.0-39.1); MEAN CORPUSCULAR HEMOGLOBIN 31.1 pg (28-32); MEAN CORPUSCULAR VOLUME 94.4 fL (81-99); MONOCYTES # (AUTO) 0.5 (0.2-0.8); MONOCYTES % 5.1 % (4.4-11.3); NEUTROPHILS % 86.6 % (38.7-80.0); PLATELET COUNT 114 x10e3/uL (140-360); RED BLOOD COUNT 3.02 x10e6/uL (4.3-5.7); RED CELL DISTRIBUTION WIDTH 14.5 % (11.7-14.4); WHITE BLOOD COUNT 10.43 x10e3/uL (4.8-10.8)
[2024-01-15 06:29] LABS: MAGNESIUM 2.2 MG/DL (1.3-2.1)
[2024-01-15 06:30] LABS: CALCIUM 10.2 mg/dL (8.4-10.2); CREATININE, SERUM 8.75 mg/dL (0.72-1.25)
[2024-01-15 09:23] LABS: THYROID STIMULATING HORMONE 0.186 uIU/mL (0.350-4.940)
[2024-01-15 10:30] LABS: POTASSIUM 4.1 mmol/L (3.5-5.1)
[2024-01-15 15:51] LABS: ANION GAP 20.1 mmol/L (8-16)
[2024-01-16] VITALS (13 sets, daily range): BP systolic 119–173; BP diastolic 62–84; PULSE 69–85; RESP 17–20; TEMP 97.5–98.6; O2SAT 96–100
[2024-01-16] MEDS ORDERED: SODIUM CHLORIDE 0.9% 1000ML 2,000 ML IV PRN (14:30)
[2024-01-16] MEDS ORDERED: SODIUM CHLORIDE 0.9% 250ML 500 ML IV PRN (14:30)
[2024-01-16] MEDS: Vancomycin IV 1 GM in SODIUM CHLORIDE 0.9% 250ML 250 ML IV SCH (21:52)
[2024-01-17] VITALS (12 sets, daily range): BP systolic 119–156; BP diastolic 66–80; PULSE 77–100; RESP 17–20; TEMP 98–98.9; O2SAT 98–100
[2024-01-17 07:00] LABS: ALBUMIN 2.5 g/dL (3.5-5.0); ALBUMIN/GLOBULIN RATIO 0.6 (0.8-2.0); ANION GAP 14.9 mmol/L (8-16); BILIRUBIN,TOTAL 0.4 mg/dL (0.2-1.2); CALCIUM 8.7 mg/dL (8.4-10.2); CREATININE, SERUM 6.46 mg/dL (0.72-1.25); POTASSIUM 3.9 mmol/L (3.5-5.1); TOTAL PROTEIN 6.4 g/dL (6.5-8.1)
[2024-01-18] VITALS (9 sets, daily range): BP systolic 126–157; BP diastolic 66–81; PULSE 66–88; RESP 16–20; TEMP 97.9–98.6; O2SAT 98–100
[2024-01-19 05:37] LABS: HEPATITIS B SURFACE AG (P) Negative (Negative)
== END 2024-01-18 21:05 | disposition home or self-care (01) | DRG 871 ==
LOC: ER 15:39 → ERHOLD 17:29 → MED/SURG3 21:32 → OBSVTOIN 01-12 08:00
PROVIDERS: ADMIT Internal Medicine; ATTEND Internal Medicine
PROC: 3E0333Z Introduction of Anti-inflammatory into Peripheral Vein, Percutaneous Approach (ICD-10-PCS; principal; 2024-01-12)
DX: A41.89 Other specified sepsis (principal); I50.33 Acute on chronic diastolic (congestive) heart failure; J96.00 Acute respiratory failure, unspecified whether with hypoxia or hypercapnia; J12.1 Respiratory syncytial virus pneumonia; I13.2 Hypertensive heart and chronic kidney disease with heart failure and with stage 5 chronic kidney disease, or end stage renal disease; N18.6 End stage renal disease; T86.12 Kidney transplant failure; J36 Peritonsillar abscess; R65.20 Severe sepsis without septic shock; D63.1 Anemia in chronic kidney disease; J06.9 Acute upper respiratory infection, unspecified; I25.10 Atherosclerotic heart disease of native coronary artery without angina pectoris; I48.91 Unspecified atrial fibrillation; R53.81 Other malaise; E78.5 Hyperlipidemia, unspecified; R13.10 Dysphagia, unspecified; N40.0 Benign prostatic hyperplasia without lower urinary tract symptoms; Z99.2 Dependence on renal dialysis; Z79.82 Long term (current) use of aspirin; Z90.49 Acquired absence of other specified parts of digestive tract; Z82.49 Family history of ischemic heart disease and other diseases of the circulatory system
CPT/HCPCS: 36415; 70491; 71045; 71250; 80048; 80053; 80076; 82948; 83036; 83518; 83605; 83735; 83880; 84443; 85025; 86704; 86706; 86707; 87040; 87070; 87340; 87350; 87400; 87420; 94640; 94799; 99284; G0378; J1100; J2543; J7030; J7040; J7050; Q9967; U0002